=== PATIENT | male | born 1955 | race Caucasian/White ===

== ENCOUNTER 2019-04-02 07:22 | Day surgery (SDC) | payer OTHER ==
[~2019-04-02] VITALS: Ht 165.1 cm; Wt 90.7 kg
[2019-04-02] MEDS ORDERED: LISI20 (08:51)
[2019-04-02] MEDS ORDERED: METO25ER (08:52)
[2019-04-02] MEDS ORDERED: METF500C (08:53)
[2019-04-02] MEDS ORDERED: HYDPAM50 (08:53)
[2019-04-02] MEDS ORDERED: ATOR20 (08:54)
[2019-04-02] MEDS ORDERED: VENL25 (08:54)
[2019-04-02] MEDS ORDERED: MOME220I (08:55)
[2019-04-02] MEDS ORDERED: ALBU90OI6 (08:55)
--- NOTE | 2019-04-02 09:00 | NUR ---
04/02/19 0900 Sharri Mendez 1 IV MISS IN RH BY DIETER VEIN BLEW 1 GOOD IN RFA BY RN PT TOW
--- NOTE | 2019-04-02 10:28 | NUR ---
04/02/19 1028 Bela Camacho INJECTED 12ML NORMAL SALINE INTO TRANSVERSE COLON POLYP.
== END 2019-04-02 12:36 | disposition home or self-care (01) ==
LOC: ORSCSDS 07:22
PROVIDERS: Internal Medicine Gastroenterology
PROC: 0DB98ZX Excision of Duodenum, Via Natural or Artificial Opening Endoscopic, Diagnostic (ICD-10-PCS; principal; 2019-04-02 09:45)
PROC: 0DBL8ZX Excision of Transverse Colon, Via Natural or Artificial Opening Endoscopic, Diagnostic (ICD-10-PCS; principal; 2019-04-02 09:45)
PROC: 0DB58ZX Excision of Esophagus, Via Natural or Artificial Opening Endoscopic, Diagnostic (ICD-10-PCS; principal; 2019-04-02 09:45)
PROC: 0DBK8ZX Excision of Ascending Colon, Via Natural or Artificial Opening Endoscopic, Diagnostic (ICD-10-PCS; principal; 2019-04-02 09:45)
PROC: 0DB68ZX Excision of Stomach, Via Natural or Artificial Opening Endoscopic, Diagnostic (ICD-10-PCS; principal; 2019-04-02 09:45)
PROC: 0DBN8ZX Excision of Sigmoid Colon, Via Natural or Artificial Opening Endoscopic, Diagnostic (ICD-10-PCS; principal; 2019-04-02 09:45)
PROC: 0DBM8ZX Excision of Descending Colon, Via Natural or Artificial Opening Endoscopic, Diagnostic (ICD-10-PCS; principal; 2019-04-02 09:45)
DX: Z12.11 Encounter for screening for malignant neoplasm of colon (principal); Z86.010 Personal history of colon polyps; R11.0 Nausea; K31.7 Polyp of stomach and duodenum; D12.3 Benign neoplasm of transverse colon; D12.0 Benign neoplasm of cecum; D12.2 Benign neoplasm of ascending colon; D12.4 Benign neoplasm of descending colon; D12.5 Benign neoplasm of sigmoid colon; K57.30 Diverticulosis of large intestine without perforation or abscess without bleeding; K64.8 Other hemorrhoids; I10 Essential (primary) hypertension; E11.9 Type 2 diabetes mellitus without complications; E78.5 Hyperlipidemia, unspecified; G47.33 Obstructive sleep apnea (adult) (pediatric); J44.9 Chronic obstructive pulmonary disease, unspecified; F17.210 Nicotine dependence, cigarettes, uncomplicated; I25.10 Atherosclerotic heart disease of native coronary artery without angina pectoris; Z79.899 Other long term (current) drug therapy; Z79.82 Long term (current) use of aspirin
CPT/HCPCS: 82947; 88305; 88342; J2704; J7120

== ENCOUNTER 2019-09-21 22:41 | Emergency (ER) | payer OTHER ==
[~2019-09-21] VITALS: Ht 165.1 cm; Wt 90.7 kg
[~2019-09-21 22:41] MED LIST: ALBU90OI INH; ALBU90OI6; ASMANEX220 MC3 INH; ATOR20; BASAGLAR K100 UNIT/1 SC; DOXE10 PO; FISH OIL 1,0001 EAC1 PO; Glucophage1000 MG PO; HYDPAM25 PO; HYDPAM50; LISI20; LISI20 PO; Lipitor20 MG PO; METF500C; METO25ER; METO25ER PO; MOME220I; NICO21TP TOP; Novolog100 UNIT/1 SC; Retin-A15 GM TOP; STRIVERDI RESPIM4 GM INH; VENL25; VENL75ER PO
[2019-09-21] MEDS ORDERED: CEPH500 PO (23:11)
[2019-09-21] MEDS ORDERED: Bactrim Ds Tab1 EACH PO (23:11)
== END 2019-09-21 23:25 | disposition home or self-care (01) ==
LOC: ER 22:41
DX: L02.415 Cutaneous abscess of right lower limb (principal); L03.115 Cellulitis of right lower limb; F17.200 Nicotine dependence, unspecified, uncomplicated
CPT/HCPCS: 10061; 99283-25; A9270-GY

== ENCOUNTER 2021-05-16 08:00 | Inpatient (IN) | payer OTHER, MEDICARE ==
[~2021-05-16] VITALS: Ht 165.1 cm; Wt 76.1 kg
[~2021-05-16 08:00] MED LIST changes: +Bactrim Ds Tab1 EACH PO; +CEPH500 PO
[2021-05-16] MEDS ORDERED: INSULANI SC (08:17)
[2021-05-16] MEDS ORDERED: ALBU90OI INH (08:18)
[2021-05-16] MEDS ORDERED: METF500C PO (08:18)
[2021-05-16 08:28] LABS: BASOPHILS ABSOLUTE AUTO 0.05 K/mm3 (0.00-0.23); BASOPHILS PERCENT AUTO 0 % (0-2); EOSINOPHILS ABSOLUTE AUTO 0.05 K/mm3 (0.00-0.68); EOSINOPHILS PERCENT AUTO 0 % (0-6); Hematocrit 40.6 % (37.0-53.0); Hemoglobin 13.9 g/dL (13.5-17.5); IMMATURE GRAN ABSOLUTE AUTO 0.17 K/mm3 (0.00-0.10); IMMATURE GRAN PERCENT AUTO 1 % (0-1); LYMPHOCYTES ABSOLUTE AUTO 1.81 K/mm3 (0.84-5.20); LYMPHOCYTES PERCENT AUTO 10 % (21-46); MONOCYTES ABSOLUTE AUTO 1.76 K/mm3 (0.16-1.47); MONOCYTES PERCENT AUTO 9 % (4-13); Mean Corpuscular HGB 31.4 pg (26.0-34.0); Mean Corpuscular HGB Conc 34.2 g/dL (31.5-36.5); Mean Corpuscular Volume 92 fL (80-100); Mean Platelet Volume 12.5 fL (9.1-12.4); NEUTROPHILS ABSOLUTE AUTO 14.99 K/mm3 (1.96-9.15); NEUTROPHILS PERCENT AUTO 80 % (41-73); Platelet Count 202 K/mm3 (150-400); RDW Coefficient Variation 12.4 % (11.7-14.2); Red Blood Cell Count 4.43 M/mm3 (4.30-5.90); White Blood Cell Count 18.83 K/mm3 (4.00-11.30)
[2021-05-16] MEDS ORDERED: Hydroxyzine HCl50 MG (08:54)
[2021-05-16] MEDS ORDERED: LISI20 PO (08:56)
[2021-05-16] MEDS ORDERED: DULERA 100 MCG/13 GM INH (08:57)
[2021-05-16] MEDS ORDERED: STRIVERDI RESPIM4 G1 INH (08:58)
[2021-05-16] MEDS ORDERED: ATOR20 PO (09:00)
[2021-05-16 09:26] LABS: Alanine Aminotransfer (ALT/SGP 36 U/L (12-78); Albumin, Blood 2.7 g/dL (3.4-5.0); Albumin/Globulin Ratio 0.8 (0.8-1.8); Alk Phos 135 U/L (50-136); Anion Gap Unable to Calculate mmol/L (6-16); Aspartate Aminotrans (AST/SGOT 151 U/L (12-37); Bilirubin, Total 1.3 mg/dL (0.1-1.0); Blood Urea Nitrogen 13 mg/dL (8-24); Calcium, Blood 6.7 mg/dL (8.5-10.1); Chloride, Blood 75 mmol/L (98-108); Creatinine, Blood 1.63 mg/dL (0.60-1.20); Globulin, Blood 3.4 g/dL (2.2-4.0); Glomerular Filtration Rate 42 (60-); Glucose, Blood 43 mg/dL (70-99); Potassium, Blood 2.2 mmol/L (3.5-5.5); Sodium, Blood 133 mmol/L (136-145); Total Protein, Blood 6.1 g/dL (6.4-8.2)
[2021-05-16 09:27] LABS: CO2, Blood >45 mmol/L (21-32)
[2021-05-16 10:20] LABS: Beta-hydroxybutyrate 0.9 mg/dL (0.2-2.8); Ethanol (Alcohol), Blood, Med <3 mg/dL
[2021-05-16 10:24] LABS: Bicarbonate Venous 53.2 mmol/L (24.0-30.0); PCO2 Venous 75.9 mmHg (38-42); PO2 Venous 31.7 mmHg (38-42); pH Blood Venous 7.49 (7.34-7.37)
[2021-05-16 10:45] LABS: International Normalized Ratio 1.31; Prothrombin Time Results 13.9 Sec (9.7-11.5)
[2021-05-16 11:18] LABS: Source, Urine Clean Catch
[2021-05-16 11:25] LABS: Appearance, Urine Clear (Clear); Bilirubin, Urine Neg (Neg); Blood, Urine 4+ (Neg); Color, Urine Yellow (P-Yellow); Glucose Qualitative, Urine Neg (Neg); Ketones, Urine Neg (Neg); Leukocyte Esterase, Urine 1+ (Neg); Nitrite, Urine Neg (Neg); Protein, Urine 4+ (Neg); Urobilinogen, Urine NORM (Normal)
[2021-05-16 11:54] LABS: Bacteria Few /hpf; Red Blood Cells, Urine 0-2 /hpf (0-2); Squamous Epithelial Cells Few /hpf (Few)
[2021-05-16 15:38] LABS: U Amphetamine Screen Not Detected; U Barbituate Screen Not Detected; U Benzodiazapine Screen Not Detected; U Buprenorphine Screen Not Detected; U Cannabinoids Screen DETECTED; U Cocaine Screen Not Detected; U Methadone Screen Not Detected; U Methamphetamine Screen Not Detected; U Opiates Screen Not Detected; U Oxycodone Screen Not Detected; U Phencyclidine Screen Not Detected; U Propoxyphene Screen Not Detected
[2021-05-16 16:32] LABS: Free Thyroxine 0.88 ng/dL (0.70-1.60); Magnesium, Blood 1.6 mg/dL (1.6-2.4)
[2021-05-16 16:40] LABS: Thyroid Stimulating Hormone 0.678 uIU/mL (0.360-4.800); Triiodothyronine, Free 2.23 pg/mL (2.18-3.98)
[2021-05-16 17:18] LABS: Albumin, Blood 2.3 g/dL (3.4-5.0); Blood Urea Nitrogen 13 mg/dL (8-24); CPK Creatine Kinase 6919 U/L (39-308); Calcium, Blood 6.1 mg/dL (8.5-10.1); Chloride, Blood 82 mmol/L (98-108); Creatine Kinase MB Index 0.2 (0.0-4.0); Creatinine, Blood 1.44 mg/dL (0.60-1.20); Glomerular Filtration Rate 49 (60-); Glucose, Blood 293 mg/dL (70-99); Phosphorus, Blood 2.9 mg/dL (2.5-4.9); Sodium, Blood 134 mmol/L (136-145)
[2021-05-16 17:19] LABS: Anion Gap Unable to Calculate mmol/L (6-16)
[2021-05-16 17:20] LABS: CO2, Blood >45 mmol/L (21-32)
--- NOTE | 2021-05-16 19:31 | NUR ---
ADMISSION, SHIFT SUMMARY PT ARRIVED TO PCU THIS AFTERNOON, HIS CBG WAS 86, VS WERE TAKEN MANNUALLY THE MACHINE WAS NOT ACCURATELY READING. VS STABLE, PT ON 2L O2. PT WAS LETHARGIC UPON ARRIVAL BUT WAS ABLE TO BECOME MORE ALERT SEVERAL HOURS LATER. PT IS VERY DIAPHORETIC, HIS CBG DROPPED THIS EVENING, PT WAS GIVEN PEPSI AND A MEAL WAS ORDERED FOR HIM. PT'S POTASSIUM IS LOW AND WAS TRENDING DOWNWARD UPON ADMISSION, REPLACED PER EMAR. PT'S CIWA'S HAVE BEEN COMPLETED NEEDED. PT'S HR WAS SUSTAINING 90-100 IN AFIB UPON ARRIVAL TO PCU; THE CARDIZEM DRIP WAS PLACED ON STANDBY AT THAT TIME
--- NOTE | 2021-05-16 21:20 | NUR ---
CARE ASSUMPTION PT A&O X4. VSS. MONITOR SHOWING AFIB, HR 90's-110. SPO2 > 92% ON 2L NC. PT W/ DIAZ CATH DRAINING RED OUTPUT. PT W/ 4 SMALL, DARK BROWN, UNFORMED BM's SINCE CARE ASSUMPTION. STOOL SAMPLE SENT. RECTAL TUBE PLACED W/ PT CONSENT. PT EATING ONLY SMALL AMOUNT OF FOOD FROM MEAL TRAY. D5 1/2NS W/ KCL INFUSING PER ORDERS. Q1H CBG's STABLE. WILL CONTINUE TO MONITOR.
[2021-05-16 21:35] LABS: Adenovirus F 40/41 Not Detected (NOT DETECT); Astrovirus Not Detected (NOT DETECT); Campylobacter Sp Not Detected (NOT DETECT); Cryptosporidium Not Detected (NOT DETECT); Cyclospora Cayetanensis Not Detected (NOT DETECT); E. Coli O157 Not Detected (NOT DETECT); Entamoeba Histolytica Not Detected (NOT DETECT); Enteroaggregative E. coli-EAEC Not Detected (NOT DETECT); Enteropathogenic E. coli-EPEC Not Detected (NOT DETECT); Enterotoxigenic E. coli-ETEC Not Detected (NOT DETECT); Giardia Lamblia Not Detected (NOT DETECT); Norovirus GI/GII Not Detected (NOT DETECT); Plesiomonas Shigelloides Not Detected (NOT DETECT); Rotavirus A Not Detected (NOT DETECT); Salmonella Sp Not Detected (NOT DETECT); Sapovirus Not Detected (NOT DETECT); Shiga Toxin-prod E. coli-STEC Not Detected (NOT DETECT); Shigella/Enteroin E. coli-EIEC Not Detected (NOT DETECT); Vibrio Cholerae Not Detected (NOT DETECT); Vibrio Sp Not Detected (NOT DETECT); Yersinia Enterocolitica Not Detected (NOT DETECT)
--- NOTE | 2021-05-16 21:59 | NUR ---
CBGs IMPROVING / CALL TO PRODUCTION ROUSTABOUT CALL TO MARK FREY TO REPORT PT CBG's 140's-150's W/ LAST 2 CHECKS. PRODUCTION ROUSTABOUT W/ NEW ORDER TO CHANGE Q1H CBG MONITORING TO Q4H & MAINTAIN CURRENT IV FLUIDS.
[2021-05-17 00:38] LABS: Hemoglobin 12.7 g/dL (13.5-17.5); Mean Corpuscular HGB 31.4 pg (26.0-34.0); Mean Corpuscular HGB Conc 34.3 g/dL (31.5-36.5); Mean Corpuscular Volume 91 fL (80-100); Mean Platelet Volume 11.9 fL (9.1-12.4); Platelet Count 183 K/mm3 (150-400); RDW Coefficient Variation 12.4 % (11.7-14.2); RDW Standard Deviation 41.5 fL (35.1-46.3); Red Blood Cell Count 4.05 M/mm3 (4.30-5.90); White Blood Cell Count 23.62 K/mm3 (4.00-11.30)
[2021-05-17 00:56] LABS: Magnesium, Blood 1.4 mg/dL (1.6-2.4)
[2021-05-17 01:01] LABS: Alanine Aminotransfer (ALT/SGP 40 U/L (12-78); Albumin, Blood 2.6 g/dL (3.4-5.0); Albumin/Globulin Ratio 0.8 (0.8-1.8); Alk Phos 128 U/L (50-136); Anion Gap Unable to Calculate mmol/L (6-16); Aspartate Aminotrans (AST/SGOT 167 U/L (12-37); Bilirubin, Total 1.1 mg/dL (0.1-1.0); Blood Urea Nitrogen 11 mg/dL (8-24); Bun/Creatinine Ratio 7.6 (12.0-20.0); CO2, Blood >45 mmol/L (21-32); Calcium, Blood 6.2 mg/dL (8.5-10.1); Chloride, Blood 83 mmol/L (98-108); Creatinine, Blood 1.44 mg/dL (0.60-1.20); Globulin, Blood 3.2 g/dL (2.2-4.0); Glomerular Filtration Rate 49 (60-); Glucose, Blood 98 mg/dL (70-99); Phosphorus, Blood 3.1 mg/dL (2.5-4.9); Potassium, Blood 2.2 mmol/L (3.5-5.5); Sodium, Blood 133 mmol/L (136-145); Total Protein, Blood 5.8 g/dL (6.4-8.2)
[2021-05-17 01:22] LABS: Creatine Kinase MB 13.2 ng/mL (0.0-3.6)
[2021-05-17 01:30] LABS: Creatine Kinase MB Index 0.2 (0.0-4.0); Troponin I 0.801 ng/mL (0.000-0.040)
[2021-05-17 05:08] LABS: PCO2 Arterial 52.2 mmHg (35-45); PO2 Arterial 54.8 mmHg (80-100); pH Blood Arterial 7.57 (7.35-7.45)
--- NOTE | 2021-05-17 07:23 | NUR ---
SHIFT SUMMARY PT A&O X4 W/ GARBLED SPEECH UPON CARE ASSUMPTION. VSS. MONITOR SHOWING AFIB, HR 90's-110. SPO2 > 92% ON 2L NC. DIAZ CATH DRAINING RED OUTPUT. RECTAL TUBE DRAINING DARK BROWN LOOSE STOOL. PT CIWA 8-11 THIS SHIFT, MEDICATED W/ PRN IV ATIVAN X2 THIS SHIFT. PT W/ LABORED BREATHING NOTED UPON MIDNIGHT ASSESSMENT. RT PROVIDED BREATHING TX & PLACED PT ON CPAP. PT LUNG SOUNDS COARSE. PT DIFFICULT TO WAKEN. MD CORADO NOTIFED W/ NEW ORDERS TO DRAW ABG & BNP, STOP D5 1/2NS W/ KCL, & START PT ON IV LASIX BID ONCE BNP LEVEL WAS OBTAINED. IV CALCIUM GLUCONATE THEN ORDERED FOLLOWING ABG RESULTS. PT MORE ALERT THIS AM, SPONTANEOUSLY OPENING EYES DURING BEDSIDE REPORT AT CHANGE OF SHIFT & ABLE TO TALK TO STAFF IN . DAY SHIFT RN ASSUMING CARE.
--- NOTE | 2021-05-17 10:49 | NUR ---
PT AWAKES TO VOICE THIS AM. LETHARGIC UPON WAKING BUT ABLE TO SPEAK AND ANSWER CARE QUESTIONS. ORIENTED TO PLACE, SELF AND SITUATION. REQUESTING TO CALL FAMILY ON PERSONAL CELL PHONE. WEARING CPAP WHEN SLEEPING WITH 13L BLEED IN UPON SHIFT CHANGE. ABLE TO TRANSFER TO 3L NASAL CANNULA WHILE AWAKE. SATING ABOVE 94%. DENIES SOB. LUNGS SOUNDING CLEAR AND DIM IN BASES. TELE SHOWING AFIB WITH HR 110'S. DENIES CHEST PAIN/PRESSURE. BP ELEVATED. BOWEL TONES PRESENT, RECTAL TUBE IN PLACE. DIAZ CATH IN PLACE DRAINING CLEAR RED URINE, DR. NARVAEZ AWARE. SKIN TEARS BILATERAL ARMS. BRUISING THROUGHOUT. CIWA Q4. PATIENT HAS SLIGHT TREMORS. CIWA THIS AM 7. SPEECH THERAPY IN TO SEE PATIENT THIS AM AND NEW ORDERS. ORAL CARE Q4. PT HAS BROKEN TEETH. CALL LIGHT IN REACH. BED ALARM ON FOR SAFETY. WILL CONTINUE TO MONITOR.
[2021-05-17 12:52] LABS: Magnesium, Blood 1.3 mg/dL (1.6-2.4)
[2021-05-17 13:03] LABS: International Normalized Ratio 1.11; Prothrombin Time Results 11.9 Sec (9.7-11.5)
[2021-05-17 13:18] LABS: Bun/Creatinine Ratio 8.1 (12.0-20.0); Calcium, Blood 6.5 mg/dL (8.5-10.1); Creatinine, Blood 1.35 mg/dL (0.60-1.20); Potassium, Blood 2.3 mmol/L (3.5-5.5)
--- NOTE | 2021-05-17 17:53 | NUR ---
SHIFT SUMMARY: PT MENTATION IMPROVING. ON 2 L NASAL CANNULA AT THIS TIME. LUNGS SOUNDING CLEAR AND DIM IN BASES. PT PRODUCTIVE COUGH WITH MODERATE AMOUNT OF SPUTUM THAT IS MEJÍA IN COLOR. TELE REMAINS AFIB WITH HR 90-110'S. DENIES CHEST PAIN/PRESSURE. VITAL SIGNS REMAIN STABLE WITH ELEVATED BP, SCHEDULED METOPROLOL. RECTAL TUBE REMOVED PER DISCOMFORT. PT ABLE TO STAND AND TRANSFER WITH 1 PERSON ASSIST TO BEDSIDE COMMODE. MAG INFUSED, POTASSIUM INFUSING. PT SITTING ON EDGE OF BED AT THIS TIME USING PERSONAL CELLPHONE. SPEECH ORDERS IN PLACE. ACHS BLOOD SUGARS. WILL CONTINUE TO MONITOR AND REPORT OFF.
--- NOTE | 2021-05-17 18:17 | NUR ---
DIAZ CATH DRAINING RED URINE. DR. NARVAEZ AWARE. DIAZ PATENT AND DRAINING. WILL CONTINUE TO MONITOR AND REPORT OFF.
--- NOTE | 2021-05-17 20:14 | NUR ---
POTASSIUM ON STANDBY PT BECOMES AGITATED AND BELLIGERENT REGARDING IRRITATION AT IV SITE IN L HAND. FLUSHES WELL WITH NS, NO SIGNS OF INFILTRATION, REDNESS AT SITE. THIS RN PUTS POTASSIUM ON STANDBY AT THIS TIME UNTIL NEW IV CAN BE PLACED DUE TO DISCOMFORT AT HAND SITE.
--- NOTE | 2021-05-18 02:23 | NUR ---
CALL TO DR CORADO UPDATED ON POTASSIUM OF 2.5. ORDER TO RUN A MAG LEVEL STAT AND START POTASSIUM 40 MEQ TOTAL IV.
[2021-05-18 04:17] LABS: BASOPHILS ABSOLUTE AUTO 0.03 K/mm3 (0.00-0.23); BASOPHILS PERCENT AUTO 0 % (0-2); EOSINOPHILS ABSOLUTE AUTO 0.11 K/mm3 (0.00-0.68); EOSINOPHILS PERCENT AUTO 1 % (0-6); Hematocrit 30.5 % (37.0-53.0); Hemoglobin 10.6 g/dL (13.5-17.5); IMMATURE GRAN ABSOLUTE AUTO 0.06 K/mm3 (0.00-0.10); IMMATURE GRAN PERCENT AUTO 1 % (0-1); LYMPHOCYTES ABSOLUTE AUTO 1.75 K/mm3 (0.84-5.20); LYMPHOCYTES PERCENT AUTO 14 % (21-46); MONOCYTES ABSOLUTE AUTO 0.92 K/mm3 (0.16-1.47); MONOCYTES PERCENT AUTO 7 % (4-13); Mean Corpuscular HGB 31.2 pg (26.0-34.0); Mean Corpuscular HGB Conc 34.8 g/dL (31.5-36.5); Mean Corpuscular Volume 90 fL (80-100); Mean Platelet Volume 12.4 fL (9.1-12.4); NEUTROPHILS ABSOLUTE AUTO 9.62 K/mm3 (1.96-9.15); NEUTROPHILS PERCENT AUTO 77 % (41-73); Platelet Count 145 K/mm3 (150-400); RDW Coefficient Variation 12.6 % (11.7-14.2); RDW Standard Deviation 41.5 fL (35.1-46.3); White Blood Cell Count 12.49 K/mm3 (4.00-11.30)
[2021-05-18 04:19] LABS: PCO2 Arterial 49.5 mmHg (35-45); PO2 Arterial 65.8 mmHg (80-100); pH Blood Arterial 7.53 (7.35-7.45)
--- NOTE | 2021-05-18 07:35 | NUR ---
SHIFT SUMMARY PT AOX3, DYSPNEIC WITH EXERTION. SATS >90% ON RA AND NC 2 L O2 WHEN AWAKE. CPAP USED THROUGH MOST OF SHIFT WHILE PT ASLEEP. REQUESTED BREATHING TREATMENTS DURING SHIFT NEEDED. RED URINE OUTPUT CONTINUED THROUGH CATHETER. AFIB 90'S-100'S WITH PVCS. DENIES CP. NO COVERAGE FOR CIWA NEEDED ON SHIFT. PT DIAPHORETIC IN SLEEP, DENIES HEADAHCE OR NAUSEA. NO VISIBLE OR FELT TREMORS. DR CORADO CALLED REGARDING CONTINUED LOW POTASSIUM AND BORDERLINE MAG. REPLACEMENTS ADMINISTERED FOR BOTH. LOVENOX HELD DUE TO BLOOD IN DIAZ BAG PER DR CORADO ORDER.
[2021-05-18 07:47] LABS: Albumin, Blood 2.1 g/dL (3.4-5.0); Albumin/Globulin Ratio 0.7 (0.8-1.8); Bilirubin, Total 1.1 mg/dL (0.1-1.0); Bun/Creatinine Ratio 6.1 (12.0-20.0); Calcium, Blood 6.5 mg/dL (8.5-10.1); Creatinine, Blood 1.32 mg/dL (0.60-1.20); Globulin, Blood 3.1 g/dL (2.2-4.0); Potassium, Blood 2.4 mmol/L (3.5-5.5); Total Protein, Blood 5.2 g/dL (6.4-8.2)
[2021-05-18 09:16] LABS: Magnesium, Blood 1.7 mg/dL (1.6-2.4); Potassium, Blood 2.8 mmol/L (3.5-5.5)
--- NOTE | 2021-05-18 17:00 | NUR ---
SHIFT SUMMARY PT ALERT AND ORIENTED. ANXIOUS AT TIMES. VS STABLE. O2 SATS HAVE REMAINED ABOVE 90% ON 2L NC. HR HAS BEEN AFIB IN THE 90'S. BP STABLE. PT DENIES ANY PAIN. DIAZ PATENT AND DRAINING RED URINE. CATHETER IRRIGATED 3 TIMES THIS SHIFT REQUESTED BY DR. NARVAEZ. PT HAD LOOSE STOOL THIS SHIFT X1. PT ABLE TO AMBULATE TO BATHROOM WITH SBA. WILL CONTINUE TO MONITOR CLOSELY AND REPORT TO ONCOMING RN.
[2021-05-18 17:16] LABS: Bun/Creatinine Ratio 8.1 (12.0-20.0); Calcium, Blood 7.1 mg/dL (8.5-10.1); Creatinine, Blood 1.23 mg/dL (0.60-1.20); Magnesium, Blood 2.1 mg/dL (1.6-2.4)
[2021-05-19 03:58] LABS: BASOPHILS ABSOLUTE AUTO 0.02 K/mm3 (0.00-0.23); BASOPHILS PERCENT AUTO 0 % (0-2); EOSINOPHILS ABSOLUTE AUTO 0.12 K/mm3 (0.00-0.68); EOSINOPHILS PERCENT AUTO 1 % (0-6); Hematocrit 28.4 % (37.0-53.0); Hemoglobin 9.9 g/dL (13.5-17.5); IMMATURE GRAN ABSOLUTE AUTO 0.05 K/mm3 (0.00-0.10); IMMATURE GRAN PERCENT AUTO 0 % (0-1); LYMPHOCYTES ABSOLUTE AUTO 1.27 K/mm3 (0.84-5.20); LYMPHOCYTES PERCENT AUTO 11 % (21-46); MONOCYTES PERCENT AUTO 9 % (4-13); Mean Corpuscular HGB 31.5 pg (26.0-34.0); Mean Corpuscular HGB Conc 34.9 g/dL (31.5-36.5); Mean Corpuscular Volume 90 fL (80-100); Mean Platelet Volume 12.4 fL (9.1-12.4); NEUTROPHILS ABSOLUTE AUTO 8.86 K/mm3 (1.96-9.15); NEUTROPHILS PERCENT AUTO 78 % (41-73); Platelet Count 145 K/mm3 (150-400); RDW Coefficient Variation 12.3 % (11.7-14.2); RDW Standard Deviation 40.5 fL (35.1-46.3); Red Blood Cell Count 3.14 M/mm3 (4.30-5.90); White Blood Cell Count 11.32 K/mm3 (4.00-11.30)
--- NOTE | 2021-05-19 04:23 | NUR ---
PT UPDATE [id number] PT HAS EPISODE OF SEVERE DYSPNEA W/AGITATION AFTER AWAKENING AND OFF CPAP W/REPOSITIONING TO SIT UP AND HAVE A DRINK AND FOR ORAL CARE. PT ATTEMPTS TO PULL OFF TELE, SAT PROVE, REFUSES TO GO BACK ON CPAP DURING EPISODE OF WHAT APPEARED TO BE PANIC DUE TO AIR HUNGER. PT PULLED OFF NC, THIS RN ATTEMPTED TO REPLACE CANNULA. BRANDEE FISHER CALLED TO BEDSIDE FOR BREATHING TX D/T SOME AUDIBLE EXPIRATORY WHEEZING. ONSET OF SOB AND AGITATION WAS SUDDEN WITHIN MINUTES OF SITTING UP IN BED FROM SLEEPING ON CPAP. SATS APPEARED 95-96% ON 2 L VIA NC PRIOR TO PT PULLING OFF SAT PROBE IN PANIC. PT CALMS DURING BREATHING TX, BREATHING APPEARS TO SLOW. PT REPOSITIONED BACK INTO BED FOLLOWING BREATHING TX BY BRANDEE FISHER AND THIS RN WITH ASSIST FROM BRANDON BLACKBURN. PT DENIES ANY PAIN. PER TELE HR HAD RAPIDLY INCREASED TO 130'S AFIB DURING EPISODE. BACK DOWN TO AFIB 90'S. PT IS CALM ON CPAP AT THIS TIME ON 10 L. SATS 96% AT THIS TIME. THIS RN TO DISCUSS W/STATION OPERATOR PROVIDER FOLLOWING RESULT OF LABS TO REPORT.
[2021-05-19 04:25] LABS: Bun/Creatinine Ratio 6.5 (12.0-20.0); Calcium, Blood 7.3 mg/dL (8.5-10.1); Creatinine, Blood 1.24 mg/dL (0.60-1.20); Potassium, Blood 3.6 mmol/L (3.5-5.5)
--- NOTE | 2021-05-19 04:42 | NUR ---
CALL TO DR CORADO [id number] CORADO TO DISCUSS PRIOR NOTIFY OF RENAL US RESULTS AND CURRENT LABS. DR CORADO DISCUSSES THIS RN'S CONCERNS OF RENAL US RESULTS AND PT'S SUDDEN ONSET OF SOB THIS SHIFT W/AWAKENING. DOES NOT THINK A REPEAT BNP IS NEEDED AT THIS TIME. DEFERS PLAN FOR RESULTS OF RENAL US TO ONCOMING PROVIDER THIS AM. NO FURTHER ORDERS FOR CONTINUED REPLACEMENTS OF LOW-END OF WNL HGB, MAG, OR K AT THIS TIME. PT IS RESTING PEACEFULLY ON CPAP SATS MAINTAIN 90-96%.
--- NOTE | 2021-05-19 06:18 | NUR ---
SHIFT SUMMARY PT AOX4 W/PERIODS OF DISORIENTATION DURING NIGHT AND EARLY AM ON SHIFT. PT EASILY AGITATED, LABILE BEHAVIOR. CALM WHILE ASLEEP AND COMFORTABLE ON CPAP. AFIB 80'S-90'S W/PVC'S. PT DENIES ANY PAIN. DIAZ PATENT AND DRAINING. URINE COLOR LIGHTENED TO PINKISH-RED THROUGH SHIFT. PT HAD EPISODE OF SEVERE DYSPNEA WITH WHEEZING SUDDENLY FOLLOWING CPAP REMOVAL FOR ORAL CARE/PO FLUIDS AND REPOSITIONING. PT BECAME AGITATED SUDDENLY AND NON-COMPLIANT W/DIRECTION FROM STAFF. RESOLVED W/NEB AND CPAP BACK ON. PT IRRITABLE THIS AM WHEN THIS RN ADMIN ORDERED PO MED AND PT WANTED TO DRINK PEPSI LAYING DOWN, PT ARGUED WITH THIS RN AND BECAME BELLIGERENT, NON-COMPLIANT WITH WARNINGS TO SIT UPRIGHT WHEN DRINKING (DIET) PEPSI. NO ISSUE DRINKING SODA WHILE LAYING ON SIDE OFF CPAP. BACK ON CPAP, PT CALMED. SATS MAINTAIN 90-95% ON CPAP W/10 L 02. IMPROVEMENTS IN ELECTROLYTES THIS SHIFT BUT CONCERN FOR RENAL US RESULTS AND H&H CONTINUING TO DROP W/PRESENCE OF BLOOD IN URINE. IV SALINE LOCKED.
--- NOTE | 2021-05-19 11:03 | NUR ---
PHYSICIAN AT BEDSIDE PHYSICIAN ORDERS TO HAVE TELE REMOVED AND TO BEGIN BLADDER TRAINING TO REMOVE DIAZ TOMORROW AM 05/20.
--- NOTE | 2021-05-19 13:20 | NUR ---
UPDATE NOTIFIED PHYSICIAN PT HAD NO FURTHER TROPONINS ORDERED. NO NEW ORDERS AT THIS TIME, PHYSICIAN BELIEVES TROPONIN BUMPED D/T A-FIB. PT REPORTS NO CP OR PRESSURE.
--- NOTE | 2021-05-19 14:02 | NUR ---
REPORT GIVEN REPORT GIVEN TO ROOM 311 RN. PT TO BE TAKEN TO ROOM 311 BY BED WITH ALL BELONGINGS.
--- NOTE | 2021-05-19 18:16 | NUR ---
PT TRANSFERRED FROM PCU 9 TO ROOM 311 AT 1423- W/C TO BED, PT AMBULATES STEADY ON FEET SBA. ORIENTED TO ROOM CALL LIGHT AND SAFETY- PT MODERATELY ANXIOUS. BLOOD PRESURE ELEVATED. CALL TO DR NARVAEZ, ORDER FOR AMLODAPINE AND HYDRALAZINE.
--- NOTE | 2021-05-19 18:17 | NUR ---
SUMM- PT A/O X3, LABILE MOOD WITH OCCASIONAL OUTBURSTS AND INABILITY TO COPE. MEDICATED WITH ATIVAN AND ATARAX BEFORE DINNER WITH MOD TO SEVERE ANXIETY ESCELATING. PT HAS DIAZ WITH BLOOD TINGED URINE AND WANTS IT OUT. WILL DO BLADDER TRAINING AND ATTEMPT TO DC IN THE AM. HYPERTENSIVE AND RECEIVED PRN MEDS, CONTINUING TO ELSI PROGRESS. PT TOLERATED DINNER AND FLUIDS. HAD BM. CONSTANTLY FEELS LIKE HE HAS TO VOID WITH THE DIAZ IN PLACE. WILL REPORT ALL TO NOC RN.
[2021-05-20] MEDS ORDERED: ASCO500 PO (04:13)
[2021-05-20] MEDS ORDERED: VITAMIN D31000 UNI1 PO (04:14)
[2021-05-20] MEDS ORDERED: FISH OIL 1,2001 EAC7 PO (04:15)
[2021-05-20] MEDS ORDERED: TADALAFIL20 M1 PO (04:21)
[2021-05-20] MEDS ORDERED: VENL75ER PO (04:22)
--- NOTE | 2021-05-20 04:58 | NUR ---
SHIFT SUMMARY A/O, ABLE TO MAKE NEEDS KNOWN. COOPERATIVE WITH CARE. APPEARS TO GET VERY ANXIOUS AND IRRITABLE AT TIMES. NO C/O PAIN/DISCOMFORT. SHOWER RECIEVED. CPAP @ HS /c CONT. BIOX. APPEARED TO REST MUCH OF THE NIGHT. 1P ASSIST TO BATHROOM. DIAZ SECURED AND DRAINING TO GRAVITY. ATTEMPTED TO BLADDER TRAIN; NOTABLY LEAKING AROUND CATHETER WITHIN 40 MINS. NO OTHER ACUTE CHANGES NOTED. BED REMAINED IN LOWEST POSITION. CALL LIGHT AND BELONGINGS WITHIN REACH. CONTINUE WITH CURRENT PLAN OF CARE. REPORT TO ONCOMING RN.
[2021-05-20 08:04] LABS: BASOPHILS ABSOLUTE AUTO 0.02 K/mm3 (0.00-0.23); BASOPHILS PERCENT AUTO 0 % (0-2); EOSINOPHILS ABSOLUTE AUTO 0.09 K/mm3 (0.00-0.68); EOSINOPHILS PERCENT AUTO 1 % (0-6); Hemoglobin 10.7 g/dL (13.5-17.5); IMMATURE GRAN ABSOLUTE AUTO 0.07 K/mm3 (0.00-0.10); IMMATURE GRAN PERCENT AUTO 1 % (0-1); LYMPHOCYTES ABSOLUTE AUTO 0.87 K/mm3 (0.84-5.20); LYMPHOCYTES PERCENT AUTO 9 % (21-46); MONOCYTES ABSOLUTE AUTO 1.19 K/mm3 (0.16-1.47); MONOCYTES PERCENT AUTO 12 % (4-13); Mean Corpuscular HGB 31.3 pg (26.0-34.0); Mean Corpuscular HGB Conc 34.5 g/dL (31.5-36.5); Mean Corpuscular Volume 91 fL (80-100); Mean Platelet Volume 12.9 fL (9.1-12.4); NEUTROPHILS ABSOLUTE AUTO 7.99 K/mm3 (1.96-9.15); NEUTROPHILS PERCENT AUTO 78 % (41-73); Platelet Count 186 K/mm3 (150-400); RDW Coefficient Variation 12.3 % (11.7-14.2); RDW Standard Deviation 40.3 fL (35.1-46.3); Red Blood Cell Count 3.42 M/mm3 (4.30-5.90); White Blood Cell Count 10.23 K/mm3 (4.00-11.30)
[2021-05-20 08:16] LABS: Anion Gap 4 mmol/L (6-16); Blood Urea Nitrogen 9 mg/dL (8-24); Bun/Creatinine Ratio 7.5 (12.0-20.0); CO2, Blood 31 mmol/L (21-32); Calcium, Blood 8.2 mg/dL (8.5-10.1); Chloride, Blood 101 mmol/L (98-108); Glomerular Filtration Rate >60 (60-); Glucose, Blood 178 mg/dL (70-99); Potassium, Blood 3.6 mmol/L (3.5-5.5); Sodium, Blood 136 mmol/L (136-145)
[2021-05-20] MEDS ORDERED: AMLO10 PO (09:14)
[2021-05-20] MEDS ORDERED: MELATONIN5 M1 PO (09:14)
[2021-05-20] MEDS ORDERED: METO50ER PO (09:15)
[2021-05-20] MEDS ORDERED: Aspir 8181 MG PO (09:15)
--- NOTE | 2021-05-20 09:52 | NUR ---
[facility] [employer]'Ignacio FOR A [employer] TAXI TRANSPORT TO PT'S V[facility]. [place] TAXI REPORTS PICKUP AT 1030. [facility] AND [facility] THEY WILL CALL PT WITH A FOLLOW UP APPT.
--- NOTE | 2021-05-20 10:30 | NUR ---
DISCHARGE DISCHARGE INSTRUCTIONS, MEDICATION LIST AND FOLLOW UP APPOINTMENT REVIEWED WITH PT. [facility] INDICATED THAT THEY WOULD BE IN TOUCH WITH PT TO ARRANGE FOLLOW UP APPOINTMENT. PT VERBALLY INDICATED UNDERSTANDING OF ALL INSTRUCTIONS RECEIVED. ESCORTED OUT TO WAITING TAXI BY METAL MOULDER VIA W/C
== END 2021-05-20 10:26 | disposition home or self-care (01) | DRG 308 ==
LOC: ER 08:00 → ERHOLD 11:49 → PCU 11:49 → MEDS 05-19 14:23
PROVIDERS: Family Medicine; Internal Medicine; ADMIT Internal Medicine
DX: I48.91 Unspecified atrial fibrillation (principal); G92 Toxic encephalopathy; N17.9 Acute kidney failure, unspecified; E87.1 Hypo-osmolality and hyponatremia; E87.3 Alkalosis; E87.6 Hypokalemia; G47.33 Obstructive sleep apnea (adult) (pediatric); E83.42 Hypomagnesemia; J44.9 Chronic obstructive pulmonary disease, unspecified; I10 Essential (primary) hypertension; I25.10 Atherosclerotic heart disease of native coronary artery without angina pectoris; Z91.14 Patient's other noncompliance with medication regimen; Z59.0 Homelessness; Z95.5 Presence of coronary angioplasty implant and graft; F32.9 Major depressive disorder, single episode, unspecified; Z08 Encounter for follow-up examination after completed treatment for malignant neoplasm; Z85.828 Personal history of other malignant neoplasm of skin; Z79.899 Other long term (current) drug therapy; Z79.4 Long term (current) use of insulin; F17.210 Nicotine dependence, cigarettes, uncomplicated; I49.3 Ventricular premature depolarization; I47.2 Ventricular tachycardia; R31.9 Hematuria, unspecified; E11.649 Type 2 diabetes mellitus with hypoglycemia without coma
CPT/HCPCS: 0097U; 36415; 36600; 51702; 70450; 71046; 76770; 80048; 80053; 80069; 81001; 82010; 82140; 82330; 82550; 82553; 82803; 82947; 83690; 83735; 83880; 84100; 84132; 84439; 84443; 84481; 84484; 85025; 85027; 85610; 87086; 92610; 93005; 93010; 93306; 94640; 94660; 94664; 94762; 96365-59; 96366-59; 96368; 96375-59; 96376-59; 99285-25; A9270; C9113; G0480; J0360; J0610; J1650; J1940; J2060; J3411; J3475; J3480; J7030; J7042; J7050

== ENCOUNTER → 2021-06-09 | Outpatient (CLI) | payer OTHER ==
[~2021-06-09] MED LIST changes: +AMLO10 PO; +ASCO500 PO; +ATOR20 PO; +Aspir 8181 MG PO; +DULERA 100 MCG/13 GM INH; +FISH OIL 1,2001 EAC7 PO; +Hydroxyzine HCl50 MG; +INSULANI SC; +MELATONIN5 M1 PO; +METF500C PO; +METO50ER PO; +STRIVERDI RESPIM4 G1 INH; +TADALAFIL20 M1 PO; +VITAMIN D31000 UNI1 PO
[2021-06-09 17:43] LABS: Source, Urine Voided
[2021-06-09 17:49] LABS: Appearance, Urine Clear (Clear); Bilirubin, Urine Neg (Neg); Blood, Urine Neg (Neg); Color, Urine Yellow (P-Yellow); Glucose Qualitative, Urine Neg (Neg); Ketones, Urine Neg (Neg); Leukocyte Esterase, Urine Neg (Neg); Nitrite, Urine Neg (Neg); Protein, Urine 3+ (Neg); Urobilinogen, Urine NORM (Normal)
[2021-06-09 18:34] LABS: Bacteria Not Seen /hpf; Red Blood Cells, Urine Rare /hpf (0-2); Squamous Epithelial Cells Few /hpf (Few); White Blood Cells, Urine Rare /hpf (0-5)
== END | disposition home or self-care (01) ==
PROVIDERS: Emergency Medicine
DX: N39.0 Urinary tract infection, site not specified (principal)
CPT/HCPCS: 81001

== ENCOUNTER 2023-07-20 16:05 | Inpatient (IN) | payer OTHER ==
[~2023-07-20] VITALS: Ht 167.6 cm; Wt 58.5 kg
[2023-07-20 16:54] LABS: BASOPHILS ABSOLUTE AUTO 0.02 K/mm3 (0.00-0.23); BASOPHILS PERCENT AUTO 0 % (0-2); EOSINOPHILS ABSOLUTE AUTO 0.06 K/mm3 (0.00-0.68); EOSINOPHILS PERCENT AUTO 1 % (0-6); IMMATURE GRAN ABSOLUTE AUTO 0.03 K/mm3 (0.00-0.10); IMMATURE GRAN PERCENT AUTO 1 % (0-1); LYMPHOCYTES ABSOLUTE AUTO 0.74 K/mm3 (0.84-5.20); LYMPHOCYTES PERCENT AUTO 12 % (21-46); MONOCYTES ABSOLUTE AUTO 0.55 K/mm3 (0.16-1.47); MONOCYTES PERCENT AUTO 9 % (4-13); Mean Corpuscular HGB 28.9 pg (26.0-34.0); Mean Corpuscular HGB Conc 35.7 g/dL (31.5-36.5); Mean Corpuscular Volume 81 fL (80-100); Mean Platelet Volume 10.9 fL (9.1-12.4); NEUTROPHILS ABSOLUTE AUTO 4.88 K/mm3 (1.96-9.15); NEUTROPHILS PERCENT AUTO 78 % (41-73); Platelet Count 177 K/mm3 (150-400); RDW Coefficient Variation 14.6 % (11.7-14.2); Red Blood Cell Count 3.46 M/mm3 (4.30-5.90); White Blood Cell Count 6.28 K/mm3 (4.00-11.30)
[2023-07-20 17:10] LABS: Albumin, Blood 3.4 g/dL (3.4-5.0); Albumin/Globulin Ratio 1.1 (0.8-1.8); Bun/Creatinine Ratio 13.2 (12.0-20.0); Creatinine, Blood 6.29 mg/dL (0.60-1.20); Globulin, Blood 3.2 g/dL (2.2-4.0); Potassium, Blood 3.5 mmol/L (3.5-5.5); Total Protein, Blood 6.6 g/dL (6.4-8.2)
[2023-07-20 21:27] LABS: Base Excess Venous -7.5 mmol/L; Bicarbonate Venous 18.9 mmol/L (24.0-30.0); PCO2 Venous 31.4 mmHg (38-42); pH Blood Venous 7.36 (7.34-7.37)
[2023-07-20 22:33] VITALS: BP 158/98
[2023-07-20 23:15] LABS: Source, Urine Clean Catch
[2023-07-20 23:24] LABS: Bilirubin, Urine Neg (Neg); Blood, Urine 3+ (Neg); Glucose Qualitative, Urine Neg (Neg); Ketones, Urine Neg (Neg); Leukocyte Esterase, Urine Neg (Neg); Nitrite, Urine Neg (Neg); Protein, Urine 2+ (Neg); Urobilinogen, Urine NORM (Normal)
[2023-07-20 23:33] LABS: Appearance, Urine Clear (Clear); Color, Urine Yellow (P-Yellow)
[2023-07-20 23:34] LABS: Bacteria Few /hpf; Red Blood Cells, Urine 0-2 /hpf (0-2); Squamous Epithelial Cells Few /hpf (Few); White Blood Cells, Urine 0-2 /hpf (0-5)
[2023-07-21 04:46] VITALS: BP 123/61
[2023-07-21 05:34] LABS: Albumin, Blood 2.8 g/dL (3.4-5.0); Bilirubin, Total 0.8 mg/dL (0.1-1.0); Bun/Creatinine Ratio 14.4 (12.0-20.0); Calcium, Blood 8.2 mg/dL (8.5-10.1); Creatinine, Blood 5.15 mg/dL (0.60-1.20); Globulin, Blood 2.9 g/dL (2.2-4.0); Magnesium, Blood 1.9 mg/dL (1.6-2.4); Potassium, Blood 3.1 mmol/L (3.5-5.5); Total Protein, Blood 5.7 g/dL (6.4-8.2)
--- NOTE | 2023-07-21 06:29 | NUR ---
SHIFT SUMMARY NOC ADMIT FROM ED WITH NICK/HYPONATREMIA. PT HAS RECEIVED 2L NS SO FAR WITH 3L CURRENTLY INFUSING. MIDNIGHT SODIUM UP FROM 124 TO 128, AWAITING AM LABS FOR IMPROVEMENT. PT IS A/O X 4. 1PA TO BEDSIDE URINAL. PT REPORTS BEING LIVING IN [place] [facility] OF YESTERDAY, BUT NO LONGER HAS A TENABLE LIVING SITUATION. PT HAS CPAP SET UP IN ROOM FOR SLEEPING. PT HAS UA PENDING. CARE MANAGEMENT CONSULT ORDERED. PT IS [facility], STILL WAITING ON RX LIST. PT REPORTS TAKING ONLY SOME DIABETES PO RX, BUT HAS NOT TAKEN ANY OTHER OF PRESCRIBED RX FOR SOME TIME, THE REASON FOR DOING SO IS STILL VAGUE. PT IS CURRENTLY RESTING WITH BED IN LOWEST POSITION, AND CALL LIGHT WITHIN REACH.
[2023-07-21 08:47] VITALS: BP 118/100
[2023-07-21 13:41] LABS: Bun/Creatinine Ratio 15.8 (12.0-20.0); Calcium, Blood 8.2 mg/dL (8.5-10.1); Creatinine, Blood 4.19 mg/dL (0.60-1.20); Potassium, Blood 3.4 mmol/L (3.5-5.5)
[2023-07-21 16:15] VITALS: BP 139/86
--- NOTE | 2023-07-21 16:57 | NUR ---
SHIFT SUMMARY PT IS ALERT AND ORIENTED X2-3. DOESNT REMEMBER HOW OR WHY HE IS IN THE HOSPITAL. POOR INTAKE. HAS SIPPED ON DRINKS BUT DECLINED ALL OFFERS OF FOOD. FLUID BOLUS GIVEN EARLIER THIS SHIFT. CONTINUOUS IV FLUIDS. SBA TO BEDSIDE WITH URINAL. CPAP AT NIGHT. ONE PRN BREATHING REQUIRED TODAY. WHEEZING NOTED IN THE LOWER LOBES. BED IS IN THE LOWEST POSITION WITH CALL LIGHT IN REACH. BED ALARM ON. PT IS IMPULSIVE WITH URGENCY.
[2023-07-21 19:37] VITALS: BP 150/81
--- NOTE | 2023-07-22 04:09 | NUR ---
SHIFT SUMMARY PATIENT HAD NO ACUTE CHANGES. AXOX 3 AND SBA TO BSC. USING URINAL STANDING WITH SBA. VOIDING T/O SHIFT. PIV REMAINS INTACT. NS INFUSING AT 125 mL/HR. VSS/AFEBRILE. DENIES CHEST PAIN, SOB, AND N/V. CPAP SETUP IN ROOM AND DECLINING AT THIS TIME. STATING 98% ON CONTINUOUS PULSE, ON ROOM AIR. CALL LIGHT IN REACH. BED IN LOWEST POSITION. WILL CONTINUE TO MONITOR UNTIL DAY SHIFT NURSE ASSUMES CARE.
[2023-07-22 04:35] LABS: BASOPHILS ABSOLUTE AUTO 0.02 K/mm3 (0.00-0.23); BASOPHILS PERCENT AUTO 0 % (0-2); EOSINOPHILS ABSOLUTE AUTO 0.04 K/mm3 (0.00-0.68); EOSINOPHILS PERCENT AUTO 1 % (0-6); Hematocrit 28.4 % (37.0-53.0); IMMATURE GRAN ABSOLUTE AUTO 0.02 K/mm3 (0.00-0.10); IMMATURE GRAN PERCENT AUTO 0 % (0-1); LYMPHOCYTES ABSOLUTE AUTO 0.62 K/mm3 (0.84-5.20); LYMPHOCYTES PERCENT AUTO 10 % (21-46); MONOCYTES ABSOLUTE AUTO 0.48 K/mm3 (0.16-1.47); MONOCYTES PERCENT AUTO 8 % (4-13); Mean Corpuscular HGB Conc 35.2 g/dL (31.5-36.5); Mean Corpuscular Volume 82 fL (80-100); Mean Platelet Volume 10.4 fL (9.1-12.4); NEUTROPHILS ABSOLUTE AUTO 5.12 K/mm3 (1.96-9.15); NEUTROPHILS PERCENT AUTO 81 % (41-73); Platelet Count 164 K/mm3 (150-400); RDW Coefficient Variation 14.6 % (11.7-14.2); Red Blood Cell Count 3.45 M/mm3 (4.30-5.90)
[2023-07-22 04:57] LABS: Bun/Creatinine Ratio 18.9 (12.0-20.0); Calcium, Blood 8.1 mg/dL (8.5-10.1); Creatinine, Blood 2.96 mg/dL (0.60-1.20); Potassium, Blood 2.9 mmol/L (3.5-5.5)
[2023-07-22 08:35] VITALS: BP 132/78
--- NOTE | 2023-07-22 15:56 | NUR ---
SHIFT SUMMARY PATIENT RECEIVING FLUIDS THIS SHIFT. NOT EATING WELL, DIET DOWNGRADED DUE TO COMLAINTS OF NOT BEING ABLE TO CHEW WITHOUT TOP TEETH PRESENT. HAD EPISODE OF HYPOGLYCEMIA, WAS GIVEN SODA AND SNACKS HE WOULD ACCEPT. APPEARS VERY IRRITABLE AT TIMES AND YELLS OUT, BUT THEN PROMPTLY APOLOGIZES AND THANKS STAFF FOR BEING PRESENT AND GIVING CARE. HAVING SEVERAL BOWEL MOVEMENTS THIS SHIFT AND URINATING GOOD AMOUNTS. WILL CONTINUE TO MONITOR
[2023-07-22 16:10] VITALS: BP 118/68
[2023-07-22 19:46] VITALS: BP 123/76
--- NOTE | 2023-07-23 04:36 | NUR ---
SHIFT SUMMARY PATIENT IS ALERT AND ORIENTED. PATIENT HAS HAD NO ACUTE EVENTS THIS SHIFT. PATIENT HAD LOW CBG DURING DAY SHIFT, SO SPOT CHECKED DURING THE NIGHT AND DID NOT GO LOW ON CBG. PATIENT EATING AND DRINKING WELL FOR NOC SHIFT. PATIENT REQUESTED TO GET EVERYTHING DONE EARLY SO HE COULD GO TO SLEEP. PATIENT HAS BEEN SLEEPING COMFORTABLY MOST OF SHIFT. PATIENT HAS NOT COMPLAINED OF PAIN, NAUSEA, SOB OR VOMITTING THIS SHIFT. VITAL SIGNS REVIEWED. BED IN LOWEST POSITION. CALL LIGHT IN PLACE. WILL MONITOR UNTIL SHIFT CHANGE.
[2023-07-23 04:58] VITALS: BP 115/71
[2023-07-23 05:36] LABS: BASOPHILS ABSOLUTE AUTO 0.02 K/mm3 (0.00-0.23); BASOPHILS PERCENT AUTO 0 % (0-2); EOSINOPHILS ABSOLUTE AUTO 0.09 K/mm3 (0.00-0.68); EOSINOPHILS PERCENT AUTO 1 % (0-6); IMMATURE GRAN ABSOLUTE AUTO 0.03 K/mm3 (0.00-0.10); IMMATURE GRAN PERCENT AUTO 1 % (0-1); LYMPHOCYTES ABSOLUTE AUTO 0.96 K/mm3 (0.84-5.20); LYMPHOCYTES PERCENT AUTO 14 % (21-46); MONOCYTES ABSOLUTE AUTO 0.57 K/mm3 (0.16-1.47); MONOCYTES PERCENT AUTO 9 % (4-13); Mean Corpuscular HGB 28.8 pg (26.0-34.0); Mean Corpuscular HGB Conc 34.6 g/dL (31.5-36.5); Mean Corpuscular Volume 83 fL (80-100); Mean Platelet Volume 10.6 fL (9.1-12.4); NEUTROPHILS ABSOLUTE AUTO 4.98 K/mm3 (1.96-9.15); NEUTROPHILS PERCENT AUTO 75 % (41-73); Platelet Count 152 K/mm3 (150-400); RDW Coefficient Variation 14.6 % (11.7-14.2); RDW Standard Deviation 43.8 fL (35.1-46.3); Red Blood Cell Count 3.12 M/mm3 (4.30-5.90); White Blood Cell Count 6.65 K/mm3 (4.00-11.30)
[2023-07-23 06:05] LABS: Albumin, Blood 2.8 g/dL (3.4-5.0); Albumin/Globulin Ratio 1.1 (0.8-1.8); Bilirubin, Total 0.8 mg/dL (0.1-1.0); Bun/Creatinine Ratio 16.4 (12.0-20.0); Calcium, Blood 7.9 mg/dL (8.5-10.1); Creatinine, Blood 2.99 mg/dL (0.60-1.20); Globulin, Blood 2.5 g/dL (2.2-4.0); Potassium, Blood 3.9 mmol/L (3.5-5.5); Total Protein, Blood 5.3 g/dL (6.4-8.2)
[2023-07-23 07:47] VITALS: BP 110/71
[2023-07-23 17:04] VITALS: BP 111/80
--- NOTE | 2023-07-23 17:27 | NUR ---
SHIFT SUMMARY PT AxOx4. PLEASANT AND COOPERATIVE WITH CARE. PT GETTING IV INFUSIONS AND FLUIDS TODAY. WORKED WITH PHYSICAL THERAPY. PT STARTED HAVING DIARRHEA THIS AM. MULTIPLE STOOLS BY THE AFTERNOON. C-DIFF/GI PANEL ORDERED AND SAMPLE SENT. GI PANEL PENDING. PT HAD BED BATH THIS SHIFT. PT REPORTS HAVING LOW APPETITE AND NOT BEING ABLE TO CHEW VERY WELL. DRINKING SUPPLEMENTAL SHAKES FOR MOST MEALS. PT IS CURRENTLY RESTING IN BED WITH CALL LIGHT IN REACH. DENIES ANY NEEDS AT THIS TIME.
[2023-07-23 18:16] LABS: Adenovirus F 40/41 Not Detected (NOT DETECT); Astrovirus Not Detected (NOT DETECT); Campylobacter Sp Not Detected (NOT DETECT); Cryptosporidium Not Detected (NOT DETECT); Cyclospora Cayetanensis Not Detected (NOT DETECT); E. Coli O157 Not Detected (NOT DETECT); Entamoeba Histolytica Not Detected (NOT DETECT); Enteroaggregative E. coli-EAEC Not Detected (NOT DETECT); Enteropathogenic E. coli-EPEC Not Detected (NOT DETECT); Enterotoxigenic E. coli-ETEC Not Detected (NOT DETECT); Giardia Lamblia Not Detected (NOT DETECT); Norovirus GI/GII Not Detected (NOT DETECT); Plesiomonas Shigelloides Not Detected (NOT DETECT); Rotavirus A Not Detected (NOT DETECT); Salmonella Sp Not Detected (NOT DETECT); Sapovirus Not Detected (NOT DETECT); Shiga Toxin-prod E. coli-STEC Not Detected (NOT DETECT); Shigella/Enteroin E. coli-EIEC Not Detected (NOT DETECT); Vibrio Cholerae Not Detected (NOT DETECT); Vibrio Sp Not Detected (NOT DETECT); Yersinia Enterocolitica Not Detected (NOT DETECT)
[2023-07-23 19:59] VITALS: BP 112/85
--- NOTE | 2023-07-24 04:23 | NUR ---
SHIFT SUMMARY PATIENT IS ALERT AND ORIENTED. PATIENT HAS HAD NO ACUTE EVENTS THIS SHIFT. VITAL SIGNS REVIEWED. PATIENT HAS BEEN AWAKE MOST OF SHIFT, STRUGGLING TO GET COMFORTABLE AND IS CONSTANTLY COLD. IV FLUIDS HAVE BEEN INFUSING AT 125/HR ALL SHIFT. PATIENT HAS NOT COMPLAINED OF PAIN, NAUSEA, SOB OR VOMITTING THIS SHIFT. BED IN LOCKED AND LOWEST POSITION. CALL LIGHT IN PLACE. WILL MONITOR UNTIL SHIFT CHANGE.
[2023-07-24 04:54] LABS: BASOPHILS ABSOLUTE AUTO 0.02 K/mm3 (0.00-0.23); BASOPHILS PERCENT AUTO 0 % (0-2); EOSINOPHILS ABSOLUTE AUTO 0.07 K/mm3 (0.00-0.68); EOSINOPHILS PERCENT AUTO 1 % (0-6); Hematocrit 23.2 % (37.0-53.0); IMMATURE GRAN ABSOLUTE AUTO 0.03 K/mm3 (0.00-0.10); IMMATURE GRAN PERCENT AUTO 1 % (0-1); LYMPHOCYTES ABSOLUTE AUTO 1.11 K/mm3 (0.84-5.20); LYMPHOCYTES PERCENT AUTO 18 % (21-46); MONOCYTES ABSOLUTE AUTO 0.64 K/mm3 (0.16-1.47); MONOCYTES PERCENT AUTO 10 % (4-13); Mean Corpuscular HGB 29.6 pg (26.0-34.0); Mean Corpuscular HGB Conc 34.5 g/dL (31.5-36.5); Mean Corpuscular Volume 86 fL (80-100); Mean Platelet Volume 10.4 fL (9.1-12.4); NEUTROPHILS ABSOLUTE AUTO 4.39 K/mm3 (1.96-9.15); NEUTROPHILS PERCENT AUTO 70 % (41-73); Platelet Count 146 K/mm3 (150-400); RDW Coefficient Variation 14.9 % (11.7-14.2); RDW Standard Deviation 46.1 fL (35.1-46.3); White Blood Cell Count 6.26 K/mm3 (4.00-11.30)
[2023-07-24 05:08] LABS: Albumin, Blood 2.6 g/dL (3.4-5.0); Albumin/Globulin Ratio 1.1 (0.8-1.8); Bilirubin, Total 0.5 mg/dL (0.1-1.0); Bun/Creatinine Ratio 17.6 (12.0-20.0); Calcium, Blood 7.5 mg/dL (8.5-10.1); Creatinine, Blood 2.56 mg/dL (0.60-1.20); Globulin, Blood 2.3 g/dL (2.2-4.0); Total Protein, Blood 4.9 g/dL (6.4-8.2)
[2023-07-24 05:26] VITALS: BP 108/76
[2023-07-24 07:43] VITALS: BP 115/70
[2023-07-24 16:13] VITALS: BP 108/72
--- NOTE | 2023-07-24 17:03 | NUR ---
SHIFT SUMMARY PT AxOx4, COOPERATIVE WITH CARE. PT WORKED WITH PHYSICAL THERAPY TODAY. SBA IN THE ROOM FOR ASSIST WITH IV POLE, OTHERWISE TRANSFERS INDEPENDENTLY. PT IS RECEIVING IV FLUIDS AND APPETITE STIMULANTS TODAY. PT REPORTS SIGNIFICANT INCREASE IN APPETITE AND EFFORT IN FINISHING HIS MEALS. PT DENIES PAIN THIS SHIFT. CURRENT PLAN IS EXPECTED DISCHARGE TOMORROW. PT IS CURRENTLY SITTING IN CHAIR. CALL LIGHT IN REACH. DENIES ANY NEEDS AT THIS TIME.
[2023-07-24 19:29] VITALS: BP 106/56
[2023-07-25 02:04] VITALS: BP 145/63
--- NOTE | 2023-07-25 04:20 | NUR ---
SHIFT SUMMARY PATIENT IS ALERT AND ORIENTED X3 WITH OCCASIONAL CONFUSION. PATIENT HAS HAD NO ACUTE EVENTS THIS SHIFT. VITAL SIGNS REVIEWED. PATIENT HAS NOT COMPLAINED OF NAUSEA, SOB, VOMITTING OR PAIN THIS SHIFT. IV BAG HAS FINISHED AND PATIENT DISCONNECTED FROM FLUIDS ORDERED. BED IN LOCKED AND LOWEST POSITION. CALL LIGHT IN PLACE. WILL MONITOR UNTIL SHIFT CHANGE.
[2023-07-25 05:26] LABS: Albumin, Blood 2.8 g/dL (3.4-5.0); Anion Gap 7 mmol/L (6-16); Blood Urea Nitrogen 33 mg/dL (8-24); Bun/Creatinine Ratio 15.3 (12.0-20.0); CO2, Blood 17 mmol/L (21-32); Calcium, Blood 7.5 mg/dL (8.5-10.1); Chloride, Blood 105 mmol/L (98-108); Creatinine, Blood 2.15 mg/dL (0.60-1.20); Ferritin, Serum 316 ng/mL (26-388); Glomerular Filtration Rate 32 (60-); Glucose, Blood 92 mg/dL (70-99); Iron Serum 51 ug/dL (65-175); Percent Saturation 25.4 % (20.0-50.0); Phosphorus, Blood 2.6 mg/dL (2.5-4.9); Potassium, Blood 4.3 mmol/L (3.5-5.5); Sodium, Blood 129 mmol/L (136-145); Total Iron Binding Capacity 201 ug/dL (250-450)
[2023-07-25 08:40] VITALS: BP 141/73
[2023-07-25 15:40] VITALS: BP 128/87
--- NOTE | 2023-07-25 17:58 | NUR ---
SHIFT SUMMARY: PT IS A 68 YEAR OLD MALE HERE FOR AN ACUTE KIDNEY INJURY AND DEHYDRATION. A&O X 4 HE HAS BEEN HAVING EPISODES OF DIARRHEA PERIODICALLY THOUGHOUT THE DAY, BUT HAS NOW IMPROVED SINCE STARTING IMMODIUM. HE HAS CONSISTANTLY BEEN REFUSING MEALS AND WATER. HE DRINKS SODA. HE IS A ONE BY ASSIST/INDEPENDENT TO THE RESTROOM. HE IS IN BED, EATING HIS DINNER, HAS HIS CALL LIGHT WITHIN REACH, AND NOT SHOWING ANY SIGNS OR SYMPTOMS OF DISTRESS. PLAN OF CARE ONGOING.
--- NOTE | 2023-07-25 18:35 | NUR ---
NS INFUSION: WENT INTO PATIENT'S ROOM AND NOTIFIED THAT THE IV PUMP THAT WAS RUNNING NORMAL SALINE WAS OFF. UNABLE TO COLLECT TOTAL VOLUME INFUSED FOR THE SHIFT. RESTARTED NS INFUSION.
[2023-07-25 19:39] VITALS: BP 148/92
--- NOTE | 2023-07-26 04:59 | NUR ---
SHIFT SUMMARY PATIENT IS ALERT AND ORIENTED. PATIENT HAS HAD NO ACUTE EVENTS THIS SHIFT. VITAL SIGNS REVIEWED. PATIENT HAD ONE INSTANCE OF SOB THIS SHIFT. BIPAP PUT ON BY RT AND SYMPTOMS RESOLVED. PATIENT HAS BEEN RESTING MOST OF SHIFT. PATIENT HAS HAD NO COMPLAINTS OF PAIN, NAUSEA OR VOMITTING THIS SHIFT. IV FLUIDS INFUSING ORDERED. BED IN LOCKED AND LOWEST POSITION. CALL LIGHT IN PLACE. WILL MONITOR UNTIL SHIFT CHANGE.
[2023-07-26 05:04] VITALS: BP 126/81
[2023-07-26 06:51] LABS: Calcium, Blood 7.8 mg/dL (8.5-10.1); Creatinine, Blood 1.91 mg/dL (0.60-1.20)
[2023-07-26 07:48] VITALS: BP 135/73
[2023-07-26 14:05] LABS: Potassium, Blood 4.2 mmol/L (3.5-5.5)
[2023-07-26] MEDS ORDERED: LOPE2C PO ×2 (15:13)
--- NOTE | 2023-07-26 18:28 | NUR ---
PT DISCHARGED. THE PT AFTER COMING OUT IN THE MULLER AND YELLING THAT HE WAS LEAVING RIGHT NOW, AGREED TO LISTEN, AND VERBALIZED UNDERSTANDING OF THE DC INSTRUCTIONS AND ACCEPTED THE DC PACKET. THE PT WAS INSTRUCTED TO FOLLOW UP WITH HIS PCP AT THE [facility] PRIOR TO DC. THE PT WAS TRANSFERED TO THE FRONT VIA WHEELCHAIR ACCOMPANIED BY THE VEGETABLE WASHER
== END 2023-07-26 15:43 | disposition home or self-care (01) | DRG 683 ==
LOC: ER 16:05 → MEDS 21:25
PROVIDERS: Hospitalist; Internal Medicine; Nurse Practitioner Acute Care; Physician Assistant; ADMIT Internal Medicine
PROC: 5A09357 Assistance with Respiratory Ventilation, Less than 24 Consecutive Hours, Continuous Positive Airway Pressure (ICD-10-PCS; principal; 2023-07-21)
DX: N17.9 Acute kidney failure, unspecified (principal); E87.1 Hypo-osmolality and hyponatremia; I12.9 Hypertensive chronic kidney disease with stage 1 through stage 4 chronic kidney disease, or unspecified chronic kidney disease; E11.22 Type 2 diabetes mellitus with diabetic chronic kidney disease; N18.30 Chronic kidney disease, stage 3 unspecified; D63.1 Anemia in chronic kidney disease; E86.0 Dehydration; N32.89 Other specified disorders of bladder; R19.7 Diarrhea, unspecified; G47.33 Obstructive sleep apnea (adult) (pediatric); E78.5 Hyperlipidemia, unspecified; I48.0 Paroxysmal atrial fibrillation; J44.9 Chronic obstructive pulmonary disease, unspecified; F10.11 Alcohol abuse, in remission; F17.210 Nicotine dependence, cigarettes, uncomplicated; E86.1 Hypovolemia; F41.9 Anxiety disorder, unspecified; Z79.51 Long term (current) use of inhaled steroids; Z79.4 Long term (current) use of insulin; Z79.899 Other long term (current) drug therapy; Z79.82 Long term (current) use of aspirin; Z90.89 Acquired absence of other organs; Z98.890 Other specified postprocedural states; Z95.820 Peripheral vascular angioplasty status with implants and grafts; Z59.00 Homelessness unspecified; X32.XXXA Exposure to sunlight, initial encounter
CPT/HCPCS: 36415; 51798; 74018; 76770; 80048; 80053; 80069; 81001; 82435; 82550; 82607; 82728; 82746; 82803; 82947; 83540; 83550; 83735; 84132; 84295; 85025; 87507; 93005; 93010; 94640; 94660; 94664; 94760; 94762; 97110; 97116; 97162; 97165; 97535; 99285-25; A9270; J1644; J3411; J7030; Q0167

== ENCOUNTER 2023-07-29 02:16 | Emergency (ER) | payer OTHER ==
[~2023-07-29] VITALS: Ht 170.2 cm; Wt 81.7 kg
[~2023-07-29 02:16] MED LIST changes: +LOPE2C PO
[2023-07-29 02:52] LABS: BASOPHILS ABSOLUTE AUTO 0.04 K/mm3 (0.00-0.23); BASOPHILS PERCENT AUTO 1 % (0-2); EOSINOPHILS ABSOLUTE AUTO 0.07 K/mm3 (0.00-0.68); EOSINOPHILS PERCENT AUTO 1 % (0-6); Hematocrit 28.7 % (37.0-53.0); Hemoglobin 9.6 g/dL (13.5-17.5); IMMATURE GRAN ABSOLUTE AUTO 0.04 K/mm3 (0.00-0.10); IMMATURE GRAN PERCENT AUTO 1 % (0-1); LYMPHOCYTES ABSOLUTE AUTO 0.68 K/mm3 (0.84-5.20); LYMPHOCYTES PERCENT AUTO 8 % (21-46); MONOCYTES ABSOLUTE AUTO 0.79 K/mm3 (0.16-1.47); MONOCYTES PERCENT AUTO 9 % (4-13); Mean Corpuscular HGB 29.4 pg (26.0-34.0); Mean Corpuscular HGB Conc 33.4 g/dL (31.5-36.5); Mean Corpuscular Volume 88 fL (80-100); Mean Platelet Volume 10.5 fL (9.1-12.4); NEUTROPHILS ABSOLUTE AUTO 7.07 K/mm3 (1.96-9.15); NEUTROPHILS PERCENT AUTO 81 % (41-73); Platelet Count 240 K/mm3 (150-400); RDW Coefficient Variation 16.1 % (11.7-14.2); RDW Standard Deviation 50.4 fL (35.1-46.3); Red Blood Cell Count 3.27 M/mm3 (4.30-5.90); White Blood Cell Count 8.69 K/mm3 (4.00-11.30)
[2023-07-29 03:15] LABS: Albumin, Blood 3.3 g/dL (3.4-5.0); Bilirubin, Total 0.6 mg/dL (0.1-1.0); Bun/Creatinine Ratio 9.9 (12.0-20.0); Calcium, Blood 8.1 mg/dL (8.5-10.1); Creatinine, Blood 1.72 mg/dL (0.60-1.20); Globulin, Blood 3.4 g/dL (2.2-4.0); Total Protein, Blood 6.7 g/dL (6.4-8.2)
[2023-07-29 04:13] VITALS: BP 144/87
[2023-07-29] MEDS ORDERED: PRED20 PO (04:16)
[2023-07-29] MEDS ORDERED: DULERA 100 MCG/13 GM INH (04:16)
== END 2023-07-29 04:41 | disposition home or self-care (01) ==
LOC: ER 02:16
PROVIDERS: Emergency Medicine
DX: J44.1 Chronic obstructive pulmonary disease with (acute) exacerbation (principal); D64.9 Anemia, unspecified; I12.9 Hypertensive chronic kidney disease with stage 1 through stage 4 chronic kidney disease, or unspecified chronic kidney disease; E11.22 Type 2 diabetes mellitus with diabetic chronic kidney disease; N18.9 Chronic kidney disease, unspecified; F17.200 Nicotine dependence, unspecified, uncomplicated; E78.5 Hyperlipidemia, unspecified; G47.33 Obstructive sleep apnea (adult) (pediatric); I48.0 Paroxysmal atrial fibrillation; Z79.01 Long term (current) use of anticoagulants; Z79.51 Long term (current) use of inhaled steroids
CPT/HCPCS: 71045; 80053; 85025; 93005; 93010; 94644; 94664; 96374; 99285-25; J2930

== ENCOUNTER 2023-07-29 16:07 | Emergency (ER) | payer OTHER ==
[~2023-07-29] VITALS: Ht 165.1 cm; Wt 72.6 kg
[~2023-07-29 16:07] MED LIST changes: +PRED20 PO
[2023-07-29 16:19] VITALS: BP 138/82
[2023-07-29 18:26] LABS: Base Excess Venous -13.6 mmol/L; Bicarbonate Venous 14.5 mmol/L (24.0-30.0); PCO2 Venous 34.1 mmHg (38-42); pH Blood Venous 7.22 (7.34-7.37)
[2023-07-29 19:11] LABS: Hematocrit 26.2 % (37.0-53.0); Hemoglobin 8.7 g/dL (13.5-17.5); Mean Corpuscular HGB Conc 33.2 g/dL (31.5-36.5); Mean Corpuscular Volume 87 fL (80-100); Mean Platelet Volume 11.6 fL (9.1-12.4); Platelet Count 273 K/mm3 (150-400); RDW Coefficient Variation 16.2 % (11.7-14.2); RDW Standard Deviation 51.2 fL (35.1-46.3); White Blood Cell Count 11.26 K/mm3 (4.00-11.30)
[2023-07-29 19:21] LABS: Bun/Creatinine Ratio 9.5 (12.0-20.0); Calcium, Blood 8.6 mg/dL (8.5-10.1); Creatinine, Blood 1.69 mg/dL (0.60-1.20); Potassium, Blood 4.3 mmol/L (3.5-5.5)
[2023-07-29 20:08] LABS: BAND PERCENT MAN 7 % (0-8); BASOPHILS PERCENT MAN 0 % (0-2); EOSINOPHILS PERCENT MAN 0 % (0-6); LYMPHOCYTES ABSOLUTE MAN 0.11 K/mm3 (0.84-5.20); LYMPHOCYTES PERCENT MAN 1 % (21-46); MONOCYTES ABSOLUTE MAN 0.11 K/mm3 (0.16-1.47); MONOCYTES PERCENT MAN 1 % (4-13); NEUTROPHILS ABSOLUTE MAN 11.03 K/mm3 (1.96-9.15); SEG NEUTROPHILS PERCENT MAN 91 % (41-73); TOTAL CELLS COUNTED 100
[2023-07-29 20:28] LABS: U Amphetamine Screen Not Detected; U Barbituate Screen Not Detected; U Benzodiazapine Screen Not Detected; U Buprenorphine Screen Not Detected; U Cannabinoids Screen DETECTED; U Cocaine Screen Not Detected; U Methadone Screen Not Detected; U Methamphetamine Screen Not Detected; U Opiates Screen Not Detected; U Oxycodone Screen Not Detected; U Phencyclidine Screen Not Detected; U Propoxyphene Screen Not Detected
[2023-07-29 20:50] LABS: Source, Urine Straight Cath
[2023-07-29 20:53] LABS: Appearance, Urine Clear (Clear); Bilirubin, Urine Neg (Neg); Blood, Urine 1+ (Neg); Color, Urine Yellow (P-Yellow); Glucose Qualitative, Urine 3+ (Neg); Ketones, Urine Neg (Neg); Leukocyte Esterase, Urine Neg (Neg); Nitrite, Urine Neg (Neg); Protein, Urine 3+ (Neg); Specific Gravity, Urine 1.015 (1.003-1.022); Urobilinogen, Urine NORM (Normal)
[2023-07-29 21:12] LABS: Bacteria Rare /hpf; Red Blood Cells, Urine 0-2 /hpf (0-2); Squamous Epithelial Cells Few /hpf (Few); White Blood Cells, Urine Not Seen /hpf (0-5)
== END 2023-07-29 22:51 | disposition home or self-care (01) ==
LOC: ER 16:07
PROVIDERS: Emergency Medicine
DX: J44.9 Chronic obstructive pulmonary disease, unspecified (principal); I12.9 Hypertensive chronic kidney disease with stage 1 through stage 4 chronic kidney disease, or unspecified chronic kidney disease; E11.22 Type 2 diabetes mellitus with diabetic chronic kidney disease; N18.9 Chronic kidney disease, unspecified; E87.1 Hypo-osmolality and hyponatremia; E87.20 Acidosis, unspecified; I48.91 Unspecified atrial fibrillation; F17.200 Nicotine dependence, unspecified, uncomplicated; Z79.51 Long term (current) use of inhaled steroids; Z79.52 Long term (current) use of systemic steroids; Z79.899 Other long term (current) drug therapy
CPT/HCPCS: 71260; 80048; 81001; 82803; 84484; 85025; 93005; 93010; 94640; 94664; 96365; 99285-25; J3475; J7030; Q9967

== ENCOUNTER 2023-07-31 10:14 | Emergency (ER) | payer OTHER ==
[~2023-07-31] VITALS: Ht 165.1 cm; Wt 115.7 kg
[2023-07-31 10:43] LABS: BASOPHILS ABSOLUTE AUTO 0.01 K/mm3 (0.00-0.23); BASOPHILS PERCENT AUTO 0 % (0-2); EOSINOPHILS ABSOLUTE AUTO 0.07 K/mm3 (0.00-0.68); EOSINOPHILS PERCENT AUTO 1 % (0-6); Hematocrit 25.2 % (37.0-53.0); Hemoglobin 8.3 g/dL (13.5-17.5); IMMATURE GRAN ABSOLUTE AUTO 0.04 K/mm3 (0.00-0.10); IMMATURE GRAN PERCENT AUTO 1 % (0-1); LYMPHOCYTES ABSOLUTE AUTO 0.64 K/mm3 (0.84-5.20); LYMPHOCYTES PERCENT AUTO 8 % (21-46); MONOCYTES ABSOLUTE AUTO 0.66 K/mm3 (0.16-1.47); MONOCYTES PERCENT AUTO 8 % (4-13); Mean Corpuscular HGB 29.3 pg (26.0-34.0); Mean Corpuscular HGB Conc 32.9 g/dL (31.5-36.5); Mean Corpuscular Volume 89 fL (80-100); NEUTROPHILS ABSOLUTE AUTO 7.15 K/mm3 (1.96-9.15); NEUTROPHILS PERCENT AUTO 83 % (41-73); Platelet Count 299 K/mm3 (150-400); RDW Coefficient Variation 16.5 % (11.7-14.2); RDW Standard Deviation 52.7 fL (35.1-46.3); Red Blood Cell Count 2.83 M/mm3 (4.30-5.90); White Blood Cell Count 8.57 K/mm3 (4.00-11.30)
[2023-07-31 11:14] LABS: Bilirubin, Total 0.5 mg/dL (0.1-1.0); Bun/Creatinine Ratio 6.3 (12.0-20.0); Calcium, Blood 8.3 mg/dL (8.5-10.1); Creatinine, Blood 1.75 mg/dL (0.60-1.20); Globulin, Blood 3.1 g/dL (2.2-4.0); Potassium, Blood 4.2 mmol/L (3.5-5.5); Total Protein, Blood 6.1 g/dL (6.4-8.2)
[2023-07-31] MEDS ORDERED: AZIT250 PO (12:12)
[2023-07-31] MEDS ORDERED: ALBU90OI INH (12:12)
[2023-07-31] MEDS ORDERED: ATROVENT HFA12.9 GM INH (12:12)
[2023-07-31 12:15] VITALS: BP 127/73
== END 2023-07-31 12:25 | disposition home or self-care (01) ==
LOC: ER 10:14
PROVIDERS: Student in an Organized Health Care Education/Training Program
DX: J44.1 Chronic obstructive pulmonary disease with (acute) exacerbation (principal); Z79.52 Long term (current) use of systemic steroids; I12.9 Hypertensive chronic kidney disease with stage 1 through stage 4 chronic kidney disease, or unspecified chronic kidney disease; E11.22 Type 2 diabetes mellitus with diabetic chronic kidney disease; E78.5 Hyperlipidemia, unspecified; G47.33 Obstructive sleep apnea (adult) (pediatric); I48.0 Paroxysmal atrial fibrillation; N18.4 Chronic kidney disease, stage 4 (severe); F17.200 Nicotine dependence, unspecified, uncomplicated; F10.20 Alcohol dependence, uncomplicated
CPT/HCPCS: 71046; 80053; 82947; 85025; 93005; 93010; 94644; 94664; 99284-25; A9270; J7512

== ENCOUNTER 2023-08-01 07:40 | Inpatient (IN) | payer OTHER ==
[~2023-08-01] VITALS: Ht 165.1 cm; Wt 74.9 kg
[~2023-08-01 07:40] MED LIST changes: +ATROVENT HFA12.9 GM INH; +AZIT250 PO
[2023-08-01 08:04] LABS: BASOPHILS ABSOLUTE AUTO 0.01 K/mm3 (0.00-0.23); BASOPHILS PERCENT AUTO 0 % (0-2); EOSINOPHILS ABSOLUTE AUTO 0.01 K/mm3 (0.00-0.68); EOSINOPHILS PERCENT AUTO 0 % (0-6); Hematocrit 25.2 % (37.0-53.0); Hemoglobin 8.5 g/dL (13.5-17.5); IMMATURE GRAN ABSOLUTE AUTO 0.05 K/mm3 (0.00-0.10); IMMATURE GRAN PERCENT AUTO 0 % (0-1); LYMPHOCYTES ABSOLUTE AUTO 0.36 K/mm3 (0.84-5.20); LYMPHOCYTES PERCENT AUTO 2 % (21-46); MONOCYTES ABSOLUTE AUTO 1.39 K/mm3 (0.16-1.47); MONOCYTES PERCENT AUTO 8 % (4-13); Mean Corpuscular HGB 29.3 pg (26.0-34.0); Mean Corpuscular HGB Conc 33.7 g/dL (31.5-36.5); Mean Corpuscular Volume 87 fL (80-100); Mean Platelet Volume 10.8 fL (9.1-12.4); NEUTROPHILS ABSOLUTE AUTO 14.68 K/mm3 (1.96-9.15); NEUTROPHILS PERCENT AUTO 89 % (41-73); Platelet Count 326 K/mm3 (150-400); RDW Coefficient Variation 16.5 % (11.7-14.2); RDW Standard Deviation 51.6 fL (35.1-46.3)
[2023-08-01 08:12] LABS: Base Excess Venous -8.6 mmol/L; Bicarbonate Venous 17.9 mmol/L (24.0-30.0); PCO2 Venous 39.4 mmHg (38-42); pH Blood Venous 7.28 (7.34-7.37)
[2023-08-01 08:23] LABS: BASOPHILS PERCENT MAN 0 % (0-2); EOSINOPHILS PERCENT MAN 0 % (0-6); LYMPHOCYTES ABSOLUTE MAN 0.99 K/mm3 (0.84-5.20); LYMPHOCYTES PERCENT MAN 6 % (21-46); MONOCYTES ABSOLUTE MAN 0.99 K/mm3 (0.16-1.47); MONOCYTES PERCENT MAN 6 % (4-13); NEUTROPHILS ABSOLUTE MAN 14.52 K/mm3 (1.96-9.15); SEG NEUTROPHILS PERCENT MAN 88 % (41-73); TOTAL CELLS COUNTED 100
[2023-08-01 08:36] LABS: Bun/Creatinine Ratio 8.3 (12.0-20.0); Calcium, Blood 8.3 mg/dL (8.5-10.1); Creatinine, Blood 1.69 mg/dL (0.60-1.20); Potassium, Blood 4.2 mmol/L (3.5-5.5)
[2023-08-01 09:18] LABS: Adenovirus Not Detected (NOT DETECT); Bordetella pertussis Not Detected (NOT DETECT); Chlamydophila pneumoniae Not Detected (NOT DETECT); Coronavirus 229E Not Detected (NOT DETECT); Coronavirus HKU1 Not Detected (NOT DETECT); Coronavirus NL63 Not Detected (NOT DETECT); Coronavirus OC43 Not Detected (NOT DETECT); Human Metapneumovirus Not Detected (NOT DETECT); Human Rhinovirus/Enterovirus Not Detected (NOT DETECT); Influenza A/2009-H1 Not Detected (NOT DETECT); Influenza A/H1 Not Detected (NOT DETECT); Influenza A/H3 Not Detected (NOT DETECT); Influenza B Not Detected (NOT DETECT); Mycoplasma pneumoniae Not Detected (NOT DETECT); Parainfluenza Virus 1 Not Detected (NOT DETECT); Parainfluenza Virus 2 Not Detected (NOT DETECT); Parainfluenza Virus 3 Not Detected (NOT DETECT); Parainfluenza Virus 4 Not Detected (NOT DETECT); Respiratory Syncytial Virus Not Detected (NOT DETECT); SARS-Cov-2 (COVID-19), BioFire Not Detected (NOT DETECT)
[2023-08-01 15:00] VITALS: BP 133/81
--- NOTE | 2023-08-01 18:31 | NUR ---
SHIFT SUMMARY; ER ADMIT DURING SHIFT. MOVES SELF FROM ER GURNEY TO BED WITH MINIMAL ASSITANCE. 2L 02 VIA NC ON ARRIVAL. 1L NC AT END OF SHIFT. USES URINAL AT BEDSIDE, REPOSITIONS SELF NEEDED, VSS, SATS >94%. A/A/OX3 YELLS OUT AT TIMES RANDOMLY AND APPEARS TO BE TALKING TO SELF. IGNITION RISK ASSESSED. CIGARETTES AND MARIJUANA LOCKED IN MANUFACTURING PROJECT MANAGER HALLWAY. NO SALES MARKETING FOUND. PT WORRIED ABOUT VAN THAT WAS LEFT AT [facility]. ASKS IF SOMEONE CAN GO PICK IT UP. TOLD PT CANNOT DO THAT, CALLED [facility] AT PT REQUEST AND THEY STATED THEY CAN LEAVE IT THERE FOR A COUPLE DAYS. VAN VERIFIED TO BE LOCKED BY [facility] AT PT REQUEST. COOPERATIVE WITH CARE, WILL CONTINUE TO MONITOR AND TREAT UNTIL CHANGE OF SHIFT.
[2023-08-01 20:03] VITALS: BP 143/76
[2023-08-01 23:15] VITALS: BP 137/77
[2023-08-02] VITALS (8 sets, daily range): BP systolic 128–170; BP diastolic 64–100
--- NOTE | 2023-08-02 02:04 | NUR ---
THIS RN RECIEVED REPORT FROM [place]. CARE ASSUMPTION AT THIS TIME. PATIENT RESTING IN BED. DENIES NEEDS. CALL LIGHT IN REACH. ON ROOM AIR SATING ABOVE 95%. TELE SHOW SR/ST WITH HR 90-110'S. DENIES CHEST PAIN/PRESSURE. DRINKING SODA. UP WITH ONE PERSON ASSIST. DENIES NEEDS AT THIS TIME.
--- NOTE | 2023-08-02 05:55 | NUR ---
SHIFT SUMMARY: PATIENT REMAINS ALERT AND ORIENTED BUT FORGETFUL UPON WAKING. SBA TO USE URINAL. ON ROOM AIR SATING MID 90'S. SOB WITH EXCERTION. INSPIRATORY WHEEZE IN LOWER LOBES. BREATHING TREATMENTS PROVIDED THROUGHOUT THE NIGHT. TELE CONTINUES TO SHOW SR. NO TELE EVENTS THROUGHOUT THE NIGHT. BP STABLE. CALL LIGHT IN REACH. PATIENT SLEEPING ON RIGHT SIDE AT THIS TIME, DENIES NEEDS.
[2023-08-02 09:19] LABS: BASOPHILS PERCENT AUTO 0 % (0-2); EOSINOPHILS PERCENT AUTO 0 % (0-6); Hematocrit 23.3 % (37.0-53.0); Hemoglobin 7.9 g/dL (13.5-17.5); IMMATURE GRAN ABSOLUTE AUTO 0.08 K/mm3 (0.00-0.10); IMMATURE GRAN PERCENT AUTO 1 % (0-1); LYMPHOCYTES PERCENT AUTO 2 % (21-46); MONOCYTES ABSOLUTE AUTO 0.29 K/mm3 (0.16-1.47); MONOCYTES PERCENT AUTO 2 % (4-13); Mean Corpuscular HGB 29.3 pg (26.0-34.0); Mean Corpuscular HGB Conc 33.9 g/dL (31.5-36.5); Mean Corpuscular Volume 86 fL (80-100); Mean Platelet Volume 10.8 fL (9.1-12.4); NEUTROPHILS PERCENT AUTO 96 % (41-73); Platelet Count 307 K/mm3 (150-400); RDW Coefficient Variation 16.2 % (11.7-14.2); White Blood Cell Count 13.37 K/mm3 (4.00-11.30)
[2023-08-02 09:30] LABS: Base Excess Venous -10.3 mmol/L; Bicarbonate Venous 16.6 mmol/L (24.0-30.0); PCO2 Venous 33.7 mmHg (38-42); pH Blood Venous 7.29 (7.34-7.37)
[2023-08-02 09:38] LABS: Bun/Creatinine Ratio 11.2 (12.0-20.0); Calcium, Blood 8.4 mg/dL (8.5-10.1); Creatinine, Blood 1.6 mg/dL (0.60-1.20); Potassium, Blood 4.4 mmol/L (3.5-5.5)
--- NOTE | 2023-08-02 09:50 | NUR ---
PT COMPLAINING OF SOB OF DYSPNEA ON RA. 2L NC APPLIED SATS >90%. PT EDUCATED ON SITTING UP TO EASE BREATHING.
--- NOTE | 2023-08-02 10:34 | NUR ---
PT TITRATED OFF SUPPLEMENTAL O2 WITHOUT DYSPNEA OR SOB
--- NOTE | 2023-08-02 16:10 | NUR ---
PT PERSONAL BELONGINGS (BARON AND CARDS) LOCKED IN SECURITY OFFICE. RECEIPT PLACED IN PT CHART
--- NOTE | 2023-08-02 17:34 | NUR ---
PT FALL PT ATTEMPTED TO GATHER BELONGINGS AND LEAVE. HE FELL TO THE GROUND AT THE FOOT OF HIS BED AND CALLED OUT FOR HELP. PT WAS ASSESSED BY [facility] AND THE PHYSICIAN WAS NOTIFIED. PT IS BACK IN BED WITH THE PHYSICIAN AT BEDSIDE. PT CLAIMS HIS HEAD HURTS SLIGHTLY FROM THE FALL. HIS RIGHT HAND HAS TWO SKIN TEARS APPROXIMATELY THE SIZE OF DIMES. IT HAS BEEN BANDAGED AND COVERED. VITALS TAKEN AND RECORDED. PT EDUCATED ON FALL PREVENTION AND BED ALARM IS SET.
--- NOTE | 2023-08-02 18:37 | NUR ---
SHIFT SUMMARY: PT HAS BEEN EDUCATED MULTIPLE TIMES ON THE USE OF THE CALL LIGHT BUT CONTINUES TO CALL OUT IF HE NEEDS ANYTHING. HE DOES NOT LIKE THE TASTE OF WATER AND HAS REQUESTED SODA ALL DAY DESPITE ELEVATED BLOOD SUGARS. HE HAS BEEN ABLE TO MAINTAIN SP02 >90% ON ROOM AIR WITH THE OCCASIONAL SOB. PT EDUCATED ON NEED TO CALL FOR STAFF IF HE NEEDS TO GET UP. BED ALARM ON POST FALL AND BED IN LOWEST POSITION. VSS, NO PAIN OR CONCERNS AT THIS TIME.
--- NOTE | 2023-08-02 22:59 | NUR ---
INTERMITTENT SCREAMING FOR HELP, THAT HE COULDNT BREATHE. O2 SATS 99%. NOT COOPERATIVE WITH REDIRECTION EACH TIME. CALL PLACED TO MD. MD ORDERED ONE TIME DOSE OF ATIVAN 2MG IV. MED GIVEN, SEE MAR. DIRECTED TO BREATHE DEEP IN NOSE AND OUT MOUTH. REORIETED TO USE OF CALL LIGHT. HOB ELEVATED. CALMING DOWN AT THIS TIME. CALL LIGHT IN REACH. WILL CONTINUE TO MONITOR
--- NOTE | 2023-08-03 00:17 | NUR ---
DR CORADO (FEMALE) CALLED FLOOR RE DR NICKERSON ORDERING 1 DOSE OF ATIVAN EARLIER. SHE DISCUSSED HE HAD AN ATIVAN BEFORE ONE TIME ONLY. AND DISCUSSED HIS NEURO CHECKS. NO NOTED ADVERSE S/S BEFORE, CURRENTLY RESTING DEEPLY WITH ATIVAN BEING GIVEN. NOTIFIED RE HE WAS SCREAMING OUT, NOT REDIRECTABLE, SCREAMING THAT HE COULDNT BREATHE BUT WOULD SAT IN THE 90'S TO 100% WHEN CHECKED. NOTED SEVERE ANXIETY WAS THE REASON HE WAS GIVEN THE ATIVEN. SHE VOICED UNDERSTANDING AND WOULD DISCUSS IT WITH THE DAY SHIFT AND ENCOURAGED ME TO PASS IT ON TO THE DAY SHIFT RE ASSESSMENT FOR POSSIBLE ANXIETY MED. CALL LIGHT IN REACH
--- NOTE | 2023-08-03 00:43 | NUR ---
RESTING WITH DEEP BREATHS. OCCASIONAL MOVEMENT OF FEET AND ARMS. HOB ELEVATED. CALL LIGHT IN REACH. RAILS UP X 3 FOR SAFETY. WILL CONTINUE TO MONITOR
--- NOTE | 2023-08-03 01:19 | NUR ---
RESTING QUIETLY. NO NOTED S/S ACUTE DISTRESS. CALL LIGHT IN REACH
--- NOTE | 2023-08-03 03:13 | NUR ---
EDITOR FARM JOURNAL SUMMARY VSS. WAS TRANSFERRED TO FLOOR EARLIER FROM THE PCU WITH DX OF ACUTE RESP FAILURE. DWARF TREE GROWER REPORTED PT INTERMITTENTLY SCREAMING THAT HE COULDNT BREATHE BUT SATS WERE HIGH 90'S TO 100%. RECENT FALL IN PCU WELL WITH NEURO CHECKS. PT CAME TO FLOOR AND CONTINUED TO SCREAM OUT THAT HE COULDNT BREATHE AND WOULD NOT REDIRECT, VERY ANXIOUS. MD WAS NOTIFIED AND ATVAN 2 MG IV X 1 WAS ORDERED. MED ADMINISTERED AND PT WAS COACHED RE BREATHING IN THROUGH NOSE AND OUT THROUGH MOUTH SLOWLY AND DEEPLY. SOON BECAME MORE CALM AND WENT TO SLEEP. HAS BEEN RESTING QUIETLY WITHOUT NOTED DISTRESS SINCE. 02 SATS 90'S - 100% WHEN CHECKED. NURSE DISCUSSED PT ANXIETY LEVELS WITH MD BRENDAN TO DISCUSS ANXIETY MEDS WITH AM MD AND NURSE TO PASS IT ON TO AM RN FOR FOLLOW UP. WILL CONTNIUE TO MONITOR. CALL LIGHT IN REACH. RAILS UP X 3 AND BED ALARM ON FOR SAFETY.
[2023-08-03 04:50] LABS: BASOPHILS ABSOLUTE AUTO 0.01 K/mm3 (0.00-0.23); BASOPHILS PERCENT AUTO 0 % (0-2); EOSINOPHILS PERCENT AUTO 0 % (0-6); Hematocrit 24.6 % (37.0-53.0); Hemoglobin 8.3 g/dL (13.5-17.5); IMMATURE GRAN ABSOLUTE AUTO 0.11 K/mm3 (0.00-0.10); IMMATURE GRAN PERCENT AUTO 1 % (0-1); LYMPHOCYTES ABSOLUTE AUTO 0.35 K/mm3 (0.84-5.20); LYMPHOCYTES PERCENT AUTO 2 % (21-46); MONOCYTES ABSOLUTE AUTO 0.52 K/mm3 (0.16-1.47); MONOCYTES PERCENT AUTO 3 % (4-13); Mean Corpuscular HGB 29.4 pg (26.0-34.0); Mean Corpuscular HGB Conc 33.7 g/dL (31.5-36.5); Mean Corpuscular Volume 87 fL (80-100); NEUTROPHILS ABSOLUTE AUTO 14.34 K/mm3 (1.96-9.15); NEUTROPHILS PERCENT AUTO 94 % (41-73); Platelet Count 342 K/mm3 (150-400); RDW Coefficient Variation 16.2 % (11.7-14.2); RDW Standard Deviation 50.6 fL (35.1-46.3); Red Blood Cell Count 2.82 M/mm3 (4.30-5.90); White Blood Cell Count 15.33 K/mm3 (4.00-11.30)
[2023-08-03 05:11] VITALS: BP 184/98
[2023-08-03 05:19] LABS: Bun/Creatinine Ratio 11.9 (12.0-20.0); Calcium, Blood 8.4 mg/dL (8.5-10.1); Creatinine, Blood 1.59 mg/dL (0.60-1.20); Magnesium, Blood 1.8 mg/dL (1.6-2.4); Potassium, Blood 5.2 mmol/L (3.5-5.5)
--- NOTE | 2023-08-03 05:36 | NUR ---
NEURO CHECK DONE EARLIER, WAS AWAKENED FOR BLOOD DRAW. PARAMJIT. SEATER ASSEMBLER EQUAL. DORSI/PLANTAR FLEXION EQUAL. SOME VERTIGO WHEN ATTEMPTING TO STAND TO VOID. REDIRECTED, ASSISTED WITH URINAL. BACK INTO BED. HOB ELEVATED. RT TREATMENT FOR C/O SOB. VOICED THAT HE HAD SLEPT WELL AND WAS BREATHING WELL WHILE SLEEPING (DUE TO ATIVAN GIVEN EARLIER). DISCUSSED ANX MED. AM NURSE/MD TO FOLLOW UP WITH POTENTIAL MED. CALL LIGHT IN REACH
[2023-08-03 07:18] VITALS: BP 157/86
--- NOTE | 2023-08-03 13:46 | NUR ---
pt found trying to get out of bed and yelling and swearing. He wants a coke and to go smoke. Got him to sit back down after much swearing on everyones part. Advised him to stop swearing at the young nurses and signals officer's careing for him. Gave him the be a gentlman talk. He is cold and feeling with drawls and feeling cooped up. Got him in his sweatshirt and bendled up and some lunch. 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 He get very labored with any excertion. very impulsive some diffculty tracking conversations. He appears and responds ans starting to get for frail and forgetful. May need placement. He has a daughter in [place] tried to contact her no answer. Suggest [employer] consult for assistance. He is to elderly and frail to be out on the streets and in hotels. Fear for his safety. He is a high readmission risk. pt kps score is 50%
[2023-08-03 15:25] VITALS: BP 157/81
[2023-08-03 17:11] VITALS: BP 129/74
--- NOTE | 2023-08-03 18:35 | NUR ---
SHIFT SUMMARY A/O X3-4. AMBULATING WELL W/ SBA TO BATHROOM AND TRANSFERING TO CHAIR W/ NURSE ASSIST. VOIDING WELL. IV FLUIDS PER EMAR. TOLERATING PO DIET. INCREASED ANXIETY THROUGHOUT SHIFT, CALLED DR AND DR ORDERED PRN ATIVAN SEE EMAR. REQUESTING BREATHING TREATMENTS THROUGHOUT SHIFT. RESPIRATORY PLACED PT ON BIPAP DUE TO INCREASED RESPIRATIONS, AND INCREASE IN ACCESSORY MUSCLE USE. GAVE ATIVAN TO HELP WITH ANXIOUSNESS. PT SLEPT FOR A FEW HOURS AND AWOKE FOR DINNER. INTERMITTENT CONFUSION THIS SHIFT. WILL REPORT TO ONCOMING RN.
[2023-08-03 21:50] VITALS: BP 146/86
[2023-08-04 03:37] VITALS: BP 166/96
[2023-08-04 05:03] LABS: BASOPHILS ABSOLUTE AUTO 0.01 K/mm3 (0.00-0.23); BASOPHILS PERCENT AUTO 0 % (0-2); EOSINOPHILS PERCENT AUTO 0 % (0-6); Hematocrit 21.5 % (37.0-53.0); Hemoglobin 7.2 g/dL (13.5-17.5); IMMATURE GRAN ABSOLUTE AUTO 0.18 K/mm3 (0.00-0.10); IMMATURE GRAN PERCENT AUTO 2 % (0-1); LYMPHOCYTES ABSOLUTE AUTO 0.26 K/mm3 (0.84-5.20); LYMPHOCYTES PERCENT AUTO 2 % (21-46); MONOCYTES ABSOLUTE AUTO 0.63 K/mm3 (0.16-1.47); MONOCYTES PERCENT AUTO 5 % (4-13); Mean Corpuscular HGB 28.9 pg (26.0-34.0); Mean Corpuscular HGB Conc 33.5 g/dL (31.5-36.5); Mean Corpuscular Volume 86 fL (80-100); Mean Platelet Volume 11.1 fL (9.1-12.4); NEUTROPHILS ABSOLUTE AUTO 10.99 K/mm3 (1.96-9.15); NEUTROPHILS PERCENT AUTO 91 % (41-73); NRBC ABSOLUTE 0.02 K/mm3 (0.00-0.02); NRBC Auto 0.2 /100 WBC (0.0-0.2); Platelet Count 325 K/mm3 (150-400); RDW Coefficient Variation 16.1 % (11.7-14.2); RDW Standard Deviation 50.7 fL (35.1-46.3); Red Blood Cell Count 2.49 M/mm3 (4.30-5.90); White Blood Cell Count 12.07 K/mm3 (4.00-11.30)
[2023-08-04 05:34] LABS: Bun/Creatinine Ratio 14.1 (12.0-20.0); Calcium, Blood 8.5 mg/dL (8.5-10.1); Creatinine, Blood 1.63 mg/dL (0.60-1.20); Potassium, Blood 5.1 mmol/L (3.5-5.5)
[2023-08-04 07:39] VITALS: BP 136/76
--- NOTE | 2023-08-04 07:41 | NUR ---
END OF SHIFT SUMMARY PT A&O x3 WITH INTERMITTENT CONFUSION. PT RE-DIRECTABLE. PT COMPLIANT WITH MEDICATION REGIMEN. TAKES PILLS WHOLE IN APPLESAUCE. PT DENIED CHEST PAIN. SOB WITH EXERTION NOTED. VSS, AFEBRILE. PT REMINDED TO CALL FOR ASSISTANCE WITH TRANSFERING. BED IN THE LOWEST POSITION, BED ALARM TURNED ON. PT 1P SBA WITH FWW AND GB. PT UNSTEADY WHILE STANDING UP TO USE THE URINAL. PRN ATIVAN GIVEN FOR ANXIETY; PT SLEPT WELL AFTER RECEIVING ATIVAN. BREATHING TREATMENTS GIVEN. CALL LIGHT WITHIN REACH, WCTM.
--- NOTE | 2023-08-04 11:32 | NUR ---
"Spiritual Care | Pt./Nurse Request Pt. is awake in bed and welcomes my visit. Pt. is pleasant, but verbalizes that he cannot find his crucifix. This resin mixer excused himself to retrieve a rosary. When I returned a blessing for the sick is given, with a benediction. Pt. verbalized gratitude for the spiritual care visit. The rosary was left with the Pt."
[2023-08-04 15:05] VITALS: BP 172/112
[2023-08-04 19:27] VITALS: BP 152/106
--- NOTE | 2023-08-04 19:28 | NUR ---
SHIFT SUMMARY PT A&OX4. PT COOPERATIVE OF CARE AT TIMES AND WILL OCCASIONALLY YELL AND SWEAR AT STAFF. LUNG SOUNDS ARE COURSE AND PT DID C/O OF FEELING VERY SOB THIS AFTERNOON. PT STATED HE FELT LIKE HE COULDN'T BREATH. PT WAS SATING AT AROUND 94%. PT PLACED ON 2L OF OXYGEN AND SATING AROUND 97%. CHEST X-RAY DONE TODAY AT BEDSIDE. PT IMPULSIVE AND ATTEMPTE TO GET OOB T/O DAY. NO C/O PAIN. PT WILL AT TIMES USE CALL LIGHT. BED ALARM ON. BED IN LOWEST POSITION AND CALL LIGHT IN REACH.
[2023-08-04 23:14] VITALS: BP 151/97
[2023-08-05 02:38] VITALS: BP 146/85
[2023-08-05 05:06] LABS: Hematocrit 23.1 % (37.0-53.0); Hemoglobin 7.7 g/dL (13.5-17.5); Mean Corpuscular HGB 29.1 pg (26.0-34.0); Mean Corpuscular HGB Conc 33.3 g/dL (31.5-36.5); Mean Corpuscular Volume 87 fL (80-100); NRBC ABSOLUTE 0.02 K/mm3 (0.00-0.02); NRBC Auto 0.2 /100 WBC (0.0-0.2); Platelet Count 325 K/mm3 (150-400); RDW Coefficient Variation 16.1 % (11.7-14.2); Red Blood Cell Count 2.65 M/mm3 (4.30-5.90); White Blood Cell Count 12.31 K/mm3 (4.00-11.30)
[2023-08-05 05:26] LABS: Bun/Creatinine Ratio 15.6 (12.0-20.0); Calcium, Blood 8.1 mg/dL (8.5-10.1); Creatinine, Blood 1.6 mg/dL (0.60-1.20); Potassium, Blood 5.2 mmol/L (3.5-5.5)
[2023-08-05 05:34] LABS: BASOPHILS PERCENT MAN 0 % (0-2); EOSINOPHILS PERCENT MAN 0 % (0-6); LYMPHOCYTES % ATYPICAL MANUAL 3 % (0-0); LYMPHOCYTES ABSOLUTE MAN 0.73 K/mm3 (0.84-5.20); LYMPHOCYTES PERCENT MAN 3 % (21-46); MONOCYTES ABSOLUTE MAN 0.73 K/mm3 (0.16-1.47); MONOCYTES PERCENT MAN 6 % (4-13); NEUTROPHILS ABSOLUTE MAN 10.83 K/mm3 (1.96-9.15); SEG NEUTROPHILS PERCENT MAN 88 % (41-73); TOTAL CELLS COUNTED 100
[2023-08-05 07:42] VITALS: BP 127/76
--- NOTE | 2023-08-05 07:42 | NUR ---
SHIFT SUMMERY . PT UP NEARLY ALL NIGHT HAVING TO VOID SM AMOUNTS. BLADDER SCANER BROUGHT TP PT ROOM TO CHECK PT. AT THIOS TIME PT WAS FINALY ASLEEP AND APPERED TO BE RESTING WELL. BED ALARM BRICK BURNER LIGHT IN REACH.
[2023-08-05 14:37] VITALS: BP 151/85
--- NOTE | 2023-08-05 17:44 | NUR ---
SHIFT SUMMARY PATIENT ON 2LITERS O2 VIA NC. LABORED BELLY BREATHING AND C/O SOB, RESPIRATORY THERAPY CONSULTED AND TREATMENTS ADMINISTERED WITH POSITIVE RESULTS. CALLING OUT FOR ASSISTANCE MOST OF SHIFT, NOT USING CALL LIGHT APPROPRIATELY. WILL CONITNUE TO MONITOR
--- NOTE | 2023-08-05 18:08 | NUR ---
DIET CHANGE DOWNGRADED PATIENT'S DIET TO PUREE, C/O FOODS BEING TOO HARD TO CHEW DESPITE BEING ON [facility] SOFT DIET. SWALLOW INTACT FROM NURSING STANDPOINT.
[2023-08-05 19:35] VITALS: BP 147/76
[2023-08-05 23:13] LABS: PCO2 Arterial 35.8 mmHg (35-45); PO2 Arterial 248 mmHg (80-100); pH Blood Arterial 7.37 (7.35-7.45)
--- NOTE | 2023-08-06 04:42 | NUR ---
SHIFT SUMMARY: ON O2 @ 2 L/MIN NC, SATS > 88%; BREATH SOUNDS COARSE, DIM, TIGHT WITH EXP WHEEZES, USING ACCESSORY MUSCLES, TACHYPNEIC WITH ACTIVITY. TRIED TO PUT PT ON BIPAP, BUT HE COULD NOT TOLERATE IT. A&O TO SELF ONLY, CAN BE IMPULSIVE. MEDICATED FOR ANXIETY X 1 WITH NO REAL EFFECT. CONT/INCONT OF B&B, NEEDS ASSISTANCE WITH URINAL. GOT PT UP TO CHAIR AT BEGINNING OF SHIFT, BUT HE WANTED TO GO BTB ALMOST IMMEDIATELY. RT PERFORMED ABG. MAY NEED PALLIIATIVE CARE TO DISCUSS GOALS OF CARE GOING FORWARD.
[2023-08-06 04:44] VITALS: BP 174/97
[2023-08-06 04:48] LABS: BASOPHILS ABSOLUTE AUTO 0.02 K/mm3 (0.00-0.23); BASOPHILS PERCENT AUTO 0 % (0-2); EOSINOPHILS PERCENT AUTO 0 % (0-6); Hemoglobin 8.1 g/dL (13.5-17.5); IMMATURE GRAN ABSOLUTE AUTO 0.36 K/mm3 (0.00-0.10); IMMATURE GRAN PERCENT AUTO 3 % (0-1); LYMPHOCYTES ABSOLUTE AUTO 0.39 K/mm3 (0.84-5.20); LYMPHOCYTES PERCENT AUTO 3 % (21-46); MONOCYTES ABSOLUTE AUTO 0.77 K/mm3 (0.16-1.47); MONOCYTES PERCENT AUTO 6 % (4-13); Mean Corpuscular HGB 29.2 pg (26.0-34.0); Mean Corpuscular HGB Conc 33.8 g/dL (31.5-36.5); Mean Corpuscular Volume 87 fL (80-100); Mean Platelet Volume 10.9 fL (9.1-12.4); NEUTROPHILS ABSOLUTE AUTO 12.23 K/mm3 (1.96-9.15); NEUTROPHILS PERCENT AUTO 89 % (41-73); NRBC ABSOLUTE 0.03 K/mm3 (0.00-0.02); NRBC Auto 0.2 /100 WBC (0.0-0.2); Platelet Count 335 K/mm3 (150-400); RDW Coefficient Variation 15.5 % (11.7-14.2); RDW Standard Deviation 49.1 fL (35.1-46.3); Red Blood Cell Count 2.77 M/mm3 (4.30-5.90); White Blood Cell Count 13.77 K/mm3 (4.00-11.30)
[2023-08-06 05:07] LABS: Bun/Creatinine Ratio 15.2 (12.0-20.0); Calcium, Blood 8.2 mg/dL (8.5-10.1); Creatinine, Blood 1.64 mg/dL (0.60-1.20); Potassium, Blood 5.1 mmol/L (3.5-5.5)
[2023-08-06 08:03] VITALS: BP 162/92
[2023-08-06 15:25] VITALS: BP 140/87
--- NOTE | 2023-08-06 17:21 | NUR ---
SHIFT SUMMARY PATIENT UNABLE TO TOLERATE SITTING IN CHAIR, SOB. CALLING OUT INTO HALLWAY INSTEAD OF USING CALL LIGHT. WILL CONTINUE TO MONITOR
[2023-08-06 18:02] LABS: Bun/Creatinine Ratio 16.1 (12.0-20.0); Calcium, Blood 8.3 mg/dL (8.5-10.1); Creatinine, Blood 1.49 mg/dL (0.60-1.20); Potassium, Blood 5.1 mmol/L (3.5-5.5)
[2023-08-06 20:45] VITALS: BP 139/78
[2023-08-07 04:01] VITALS: BP 102/62
--- NOTE | 2023-08-07 06:56 | NUR ---
Rn summary: Patient has been restless on and off tonight. Patient up to the BR x2 with 1 assist and once at beginniing of shift by himself. Bed alarm has been on the rest of the shift. Pt struggles to void. He goes about 150 at a time. Post void residual was 150 via bladder scan. Patient was very incontinent this am after sleeping well. Linen changed. Bed alarm remains on. O2 sats 98% on RA at rest, very audibly wheezy. IV NS bolus at 200cc an hour started at 0400 when order found. Not started on days. Day shift notified.
[2023-08-07 08:15] VITALS: BP 162/95
[2023-08-07 09:12] LABS: Bun/Creatinine Ratio 17.4 (12.0-20.0); Calcium, Blood 8.3 mg/dL (8.5-10.1); Creatinine, Blood 1.44 mg/dL (0.60-1.20); Potassium, Blood 5.1 mmol/L (3.5-5.5)
[2023-08-07 12:29] LABS: Bun/Creatinine Ratio 18.5 (12.0-20.0); Calcium, Blood 8.3 mg/dL (8.5-10.1); Creatinine, Blood 1.46 mg/dL (0.60-1.20); Potassium, Blood 4.9 mmol/L (3.5-5.5)
[2023-08-07 16:22] VITALS: BP 159/86
[2023-08-07 19:45] VITALS: BP 159/91
--- NOTE | 2023-08-07 22:16 | NUR ---
PT A&OX3 SITTING UP IN BED IN W/O O2 ON STATING 95% DECLINES CPAP. PT NS@200ML/HR STOPPED PER PROVIDERS ORDER PROVIDER TO REASSESS AFTER RT TX. PT LUNGS DIMISHED AT BASES W AUDIBLE WHEEZES WORSENING W EXCERSION. PT VOIDS TO URINAL W ASSIST OR AMBULATES TO BATHROOM W FWW DESTATS TO MID 8OS. IV IN RFA PATENT. R HAND BANDAGE DRESSING C/D/I. PT NA LEVEL 123 GIVEN CHICKEN BROTH WITH ADDED SALT PT TOLERATED WELL. THIN LIQUID PUREE SOLIDS. CALL ARMANDO WITHIN REACH BED LOWERED WILL CONITNUE TO MONITOR.
--- NOTE | 2023-08-08 04:13 | NUR ---
CLERICAL METHODS ANALYST SUMMARY BP ELEVATED, OTHERWISE VSS. AWAKE AT INTERVALS. A FEW ATTEMPTS TO GET OUT OF BED, BED ALARM ON. ENCOURAGED TO REMAIN IN BED. O2 PER NC AND CPAP, BUT CONTINUES TO REMOVE THEM. SATS IN THE 90'S. REECIVED PRN OF ATIVAN AT HS. SEEMED TO BECOME LESS ANXIOUS. IVF WSA 200 ML/HR, RESPS DIMINISHED. VOICED SOB. WAS NOTIFIED. WS TO ASSESS PT AT BEDSIDE, BUT INSTEAD, IVF WAS DC'D. HAS BEEN RESTING INTERMITTENTLY SINCE. CALL LIGHT IN REACH. ED ALARM ON. RAILS UP X 3 FOR SAFETY. WILL CONTINUE TO MONITOR
[2023-08-08 04:59] VITALS: BP 170/98
[2023-08-08 06:53] LABS: Hematocrit 24.5 % (37.0-53.0); Hemoglobin 8.6 g/dL (13.5-17.5); Mean Corpuscular HGB 29.7 pg (26.0-34.0); Mean Corpuscular HGB Conc 35.1 g/dL (31.5-36.5); Mean Corpuscular Volume 85 fL (80-100); Mean Platelet Volume 10.6 fL (9.1-12.4); Platelet Count 314 K/mm3 (150-400); RDW Coefficient Variation 15.5 % (11.7-14.2); RDW Standard Deviation 47.6 fL (35.1-46.3)
[2023-08-08 07:20] LABS: Bun/Creatinine Ratio 20.8 (12.0-20.0); Calcium, Blood 8.1 mg/dL (8.5-10.1); Creatinine, Blood 1.54 mg/dL (0.60-1.20); Potassium, Blood 5.5 mmol/L (3.5-5.5)
[2023-08-08 07:40] VITALS: BP 155/88
[2023-08-08 14:56] VITALS: BP 140/81
--- NOTE | 2023-08-08 15:41 | NUR ---
Case Conference Note Attempted to visit with Pt. Primary RN Magdalena reports Pt just laid down to sleep. Pt has agitation today and refused therapy. Pt not able to tolerate recommended BIPAP and mentation waxes and waynes. He appears more confused in the AM and starts to clear some after lunch. Palliative Care will F/U at a later time.
--- NOTE | 2023-08-08 17:40 | NUR ---
SUMMARY- NO ACUTE EVENTS OR CHANGES THIS SHIFT.
[2023-08-08 19:27] VITALS: BP 123/71
--- NOTE | 2023-08-08 21:52 | NUR ---
CHEST X RAY ORDERED AND TAKEN. AWAITING RESULTS. CALL LIGHT IN REACH
--- NOTE | 2023-08-08 21:53 | NUR ---
PT A&OX3 AMBULAES W DWW 1PASSIST, DECLINES O2 NC @2L POX 95%.CPAP @HS INTERMITTEN USE. PT HR 96. LUNGS DIMINSHED AT BASES,BS T/O. SLIGHT OXANA REDNESS. PT REPORTS RESTLESS LEGS. BED ALARM IN PLACE. CALL ARMANDO WITHIN REACH FORGETS LIMITATIONS. BED LOWERED. HOB ELEVATED. WILL CONTINUE TO MONITOR.
--- NOTE | 2023-08-08 22:28 | NUR ---
PULLED OFF CPAP, THEN CALLED OUT SAYING HE COULDNT BREATHE. ENCOURAGED TO KEEP CPAP ON AND TEKE DEEP BREATHS. HOB REMAINS ELEVATED. O2 SATS IN THE 90'S. CALL LIGHT IN REACH. RT AT BEDSIDE TO ADDRESS ISSUE
[2023-08-09 02:17] VITALS: BP 149/88
--- NOTE | 2023-08-09 03:57 | NUR ---
MARKETING SUPPORT COORDINATOR SUMMARY VSS. INTERMITTENT AGITATION WITH TRYING TO GET OUT OF BED, UNSTEADY AND NON COMPLIANT WITH SAFETY ISSUES. RECEIVED IV ATIVAN, CALMED DOWN. CPAP PLACED PER RT, BUT EVENTUALLY PT REMOVED IT AND BECAME AGITATED, SAYING HE COULDNT BREATHE. INSTRUCTED TO BREATHE IN NOSE AND OUT MOUTH. SATS PER CONT PULSE OX 90'S, HR UP AND DOWN PER BEHAVIOR. FINALLY CALMED AND HAS BEEN RESTING QUIETLY WITH FEW INTERRUPTIONS. CALL LIGHT IN REACH. WILL CONTINUE TO MONITOR. LUNG SOUNDS REMAIN WET. CHEST X RAY DONE EARLIER, AWAITING RESULTS.
[2023-08-09 07:42] VITALS: BP 139/64
[2023-08-09 08:43] LABS: Hematocrit 23.3 % (37.0-53.0); Hemoglobin 7.9 g/dL (13.5-17.5); Mean Corpuscular HGB 28.7 pg (26.0-34.0); Mean Corpuscular HGB Conc 33.9 g/dL (31.5-36.5); Mean Corpuscular Volume 85 fL (80-100); Mean Platelet Volume 11.2 fL (9.1-12.4); NRBC ABSOLUTE 0.02 K/mm3 (0.00-0.02); NRBC Auto 0.1 /100 WBC (0.0-0.2); Platelet Count 257 K/mm3 (150-400); RDW Coefficient Variation 15.3 % (11.7-14.2); Red Blood Cell Count 2.75 M/mm3 (4.30-5.90); White Blood Cell Count 18.67 K/mm3 (4.00-11.30)
[2023-08-09 09:09] LABS: Albumin, Blood 2.5 g/dL (3.4-5.0); Albumin/Globulin Ratio 1.1 (0.8-1.8); Bun/Creatinine Ratio 23.1 (12.0-20.0); Calcium, Blood 7.6 mg/dL (8.5-10.1); Creatinine, Blood 1.47 mg/dL (0.60-1.20); Globulin, Blood 2.3 g/dL (2.2-4.0); Potassium, Blood 5.3 mmol/L (3.5-5.5); Total Protein, Blood 4.8 g/dL (6.4-8.2)
[2023-08-09 09:10] LABS: Bilirubin, Total 0.5 mg/dL (0.1-1.0)
[2023-08-09 15:42] LABS: Calcium, Blood 7.8 mg/dL (8.5-10.1); Potassium, Blood 4.7 mmol/L (3.5-5.5)
[2023-08-09 15:45] LABS: Creatinine, Blood 1.48 mg/dL (0.60-1.20)
[2023-08-09 16:32] VITALS: BP 135/68
--- NOTE | 2023-08-09 18:21 | NUR ---
SHIFT SUMMARY PATIENT EASILY IRRITABLE AT START OF SHIFT. LESS IRRITABLE AND COOPERATIVE BY END OF SHIFT. PATIENT STATES THAT HE IS HOMELESS AND LIVES IN HIS VAN. PATIENT DOES NOT REMEMBER WHERE HE PARKED HIS VAN. PATIENT UP TO CHAIR WITH 1 PERSON ASSIST. PATIENT HAVING DIFFICULTY WITH URINATING BUT POST VOID BLADDER SCAN LESS THAN 75. SODIUM LEVEL CONTINUES TO BE LOW EVEN WITH IV INFUSION, SODIUM TABLET, EXTRA SODIUM WITH MEALS AND SALTY FOOD/DRINK.
[2023-08-09 19:58] VITALS: BP 135/75
--- NOTE | 2023-08-10 05:03 | NUR ---
SHIFT SUMMARY PT IS ALERT AND ORIENTED X3/4. PT UNSTEADY WHEN UP TO STAND AT BEDSIDE TO USE THE URINAL, TALKED WITH PT AND PT AGREED TO USE URINAL IN BED HE STATED HE IS VERY TIRED. PT EASILY IRRITABLE, GOT UPSET WHEN ASKED IF HE NEEDED HELP WITH THE URINAL. PT CPAP ON T/O MOST OF NIGHT-PT TOOK A BREAK DURING A PERIOD OF BEING AWAKE. PT DENIES CHEST PAIN/PRESSURE/TIGHTNESS. PT BED IS LOCKED IN THE LOWEST POSITION WITH CALL LIGHT IN REACH. NO S/S OF DISTRESS NOTED AT THIS TIME.
--- NOTE | 2023-08-10 06:45 | NUR ---
PT GOT UP AND WENT TO THE SHOWER TO URINATE. BECAME INCREASINGLY AGITATED, NOT FOLLOWING DIRECTIONS, IMPULSIVE. DID NOT WANT HELP FROM ANY STAFF. STATED THAT "I COULD JUST PUNCH YOU GUYS".
[2023-08-10 07:39] VITALS: BP 153/89
[2023-08-10 10:52] LABS: Bun/Creatinine Ratio 22.7 (12.0-20.0); Calcium, Blood 7.8 mg/dL (8.5-10.1); Creatinine, Blood 1.54 mg/dL (0.60-1.20); Potassium, Blood 5.4 mmol/L (3.5-5.5)
[2023-08-10 11:43] LABS: Hematocrit 24.7 % (37.0-53.0); Hemoglobin 8.4 g/dL (13.5-17.5); Mean Corpuscular HGB 29.4 pg (26.0-34.0); Mean Corpuscular Volume 86 fL (80-100); Mean Platelet Volume 11.2 fL (9.1-12.4); Platelet Count 268 K/mm3 (150-400); RDW Coefficient Variation 15.6 % (11.7-14.2); RDW Standard Deviation 48.4 fL (35.1-46.3); Red Blood Cell Count 2.86 M/mm3 (4.30-5.90); White Blood Cell Count 24.89 K/mm3 (4.00-11.30)
[2023-08-10 15:21] VITALS: BP 142/80
--- NOTE | 2023-08-10 15:21 | NUR ---
Pt sitting on toilet upon arrival with IV ripped out. Placed IV on standbye, Primary RN Jaime in to assist Pt back to bed. Pt appears SOB from ambulating from bathroom to bed. Occasional swearing from Pt. Will attempt to visit with Pt at a later time when SOB has resolved.
--- NOTE | 2023-08-10 19:26 | NUR ---
SHIFT SUMMERY: PT WAS ALERT AND ABLE TO MAKE NEEDS KNOWN. NEW ORDERS FOR IV NS 1000 ML TO BE GIVEN TO RAISE SALT LEVELS. IV REPLACED RIGHT WRIST AFTER IT WAS PULLED WHILE HE USED THE REST ROOM. HE HAD AN SI STATEMENT OF " I JUST WANT TO END IT" WHEN QUESTIONED ABOUT THE STATMENT HE STATED THAT HE MADE IT OUT OF FRUSTRAION ON NOT BEING IN CONTROL OF THINGS AT THE MOMENT. HE DID NOT HAVE A PLAN OR MEANS AND REGREATED MAKEING THE STATMENT. CHARGE NURSE MADE AWARE OF STATEMENT AND INFORMED THIS NURSE TO JUST MONITOR DUE TO HIS FRUSTRATION AND NO INTENT OR PLAN.
[2023-08-10 19:51] LABS: Source, Urine Straight Cath
[2023-08-10 19:57] LABS: Appearance, Urine Clear (Clear); Bilirubin, Urine Neg (Neg); Blood, Urine 1+ (Neg); Color, Urine Yellow (P-Yellow); Glucose Qualitative, Urine 4+ (Neg); Ketones, Urine Neg (Neg); Leukocyte Esterase, Urine Neg (Neg); Nitrite, Urine Neg (Neg); Protein, Urine 3+ (Neg); Specific Gravity, Urine 1.015 (1.003-1.022); Urobilinogen, Urine NORM (Normal)
[2023-08-10 20:07] LABS: Bacteria Few /hpf; Granular Casts 0-2 /lpf (0); Hyaline Casts 0-2 /lpf (0-2); Squamous Epithelial Cells Rare /hpf (Few); White Blood Cells, Urine 0-2 /hpf (0-5)
[2023-08-10 20:57] VITALS: BP 133/87
--- NOTE | 2023-08-11 06:34 | NUR ---
SHIFT SUMMARY PT ALERT AND ORIENTED TO PERSON/SELF,PLACE AND SITUATION WITH CONFUSION. PT DENIES CHEST PAIN/PRESSURE/TIGHTNESS. PT ASSESSED FOR PAIN-PT DENIES PAIN. PT HAS BEEN IRRITABLE T/O NIGHT. PT HAS NOT BEEN WEARING HIS CPAP CONSISTENTLY T/O NIGHT TAKING IT OFF AND ON. PT REQUESTING SODAS ALL NIGHT, REQUESTED SODA THIS AM; EXPLAINED TO PT THAT WE WOULD NOT BE ABLE TO GET HIM ONE AT THIS TIME PT BECAME AGITATED-WHEN THIS RN LEFT THE ROOM PT HIT URINALS OFF OF HIS TABLE. TALKED WITH PATIENT THAT IT IS OKAY TO BE FRUSTRATED AND THAT HE JUST NEEDED TO BE PATIENT HE HAD JUST HAD 2 SODAS-PT YELLED "I DONT WANT TO BE, I WANT TO ONE NOW!". BED IS LOCKED IN THE LOWEST POSITION WITH CALL LIGHT IN REACH.
[2023-08-11 07:57] VITALS: BP 133/70
[2023-08-11 08:56] LABS: BASOPHILS ABSOLUTE AUTO 0.03 K/mm3 (0.00-0.23); BASOPHILS PERCENT AUTO 0 % (0-2); EOSINOPHILS ABSOLUTE AUTO 0.05 K/mm3 (0.00-0.68); EOSINOPHILS PERCENT AUTO 0 % (0-6); Hematocrit 27.2 % (37.0-53.0); IMMATURE GRAN ABSOLUTE AUTO 0.52 K/mm3 (0.00-0.10); IMMATURE GRAN PERCENT AUTO 2 % (0-1); LYMPHOCYTES PERCENT AUTO 7 % (21-46); MONOCYTES PERCENT AUTO 7 % (4-13); Mean Corpuscular HGB 28.8 pg (26.0-34.0); Mean Corpuscular HGB Conc 33.1 g/dL (31.5-36.5); Mean Corpuscular Volume 87 fL (80-100); NEUTROPHILS ABSOLUTE AUTO 18.64 K/mm3 (1.96-9.15); NEUTROPHILS PERCENT AUTO 83 % (41-73); Platelet Count 258 K/mm3 (150-400); RDW Coefficient Variation 15.9 % (11.7-14.2); RDW Standard Deviation 49.9 fL (35.1-46.3); Red Blood Cell Count 3.13 M/mm3 (4.30-5.90); White Blood Cell Count 22.44 K/mm3 (4.00-11.30)
[2023-08-11 09:20] LABS: Albumin, Blood 2.9 g/dL (3.4-5.0); Albumin/Globulin Ratio 1.1 (0.8-1.8); Bilirubin, Total 0.4 mg/dL (0.1-1.0); Bun/Creatinine Ratio 20.8 (12.0-20.0); Calcium, Blood 7.9 mg/dL (8.5-10.1); Creatinine, Blood 1.68 mg/dL (0.60-1.20); Globulin, Blood 2.6 g/dL (2.2-4.0); Potassium, Blood 5.2 mmol/L (3.5-5.5); Total Protein, Blood 5.5 g/dL (6.4-8.2)
[2023-08-11 15:37] VITALS: BP 133/78
--- NOTE | 2023-08-11 19:12 | NUR ---
SHIFT SUMMARY: PT IS ADMITTED FOR ACUTE RESPIRATORY FAILURE. IS ALERT AND ABLE TO MAKE NEEDS KNOWN. THROUGHOUT SHIFT WAS CALLING FOR SODA AND STATING THAT HE NEEDED IT FOR HIS BLOOD SUGARS. CBG S TODAY WERE AROUND 150. NOTED INCREASED EDEMA BILAT UPPER AND THE START BI LAT LOWER FROM YESTERDAY. MD ORDERED MANY CHANGED TO MEDICATIONS AND SEVERAL TESTS. ALSO STARTED ON TELLY
[2023-08-11 19:43] VITALS: BP 122/78
[2023-08-12 04:09] VITALS: BP 137/95
[2023-08-12 05:25] LABS: Hematocrit 22.3 % (37.0-53.0); Hemoglobin 7.7 g/dL (13.5-17.5); Mean Corpuscular HGB 29.6 pg (26.0-34.0); Mean Corpuscular HGB Conc 34.5 g/dL (31.5-36.5); Mean Corpuscular Volume 86 fL (80-100); Mean Platelet Volume 11.5 fL (9.1-12.4); Platelet Count 203 K/mm3 (150-400); RDW Coefficient Variation 15.7 % (11.7-14.2); RDW Standard Deviation 49.1 fL (35.1-46.3); White Blood Cell Count 16.45 K/mm3 (4.00-11.30)
--- NOTE | 2023-08-12 06:06 | NUR ---
SHIFT SUMMARY 68 YR M ADMITTED ON 08/02/23 FOR ACUTE RESPIRATORY FAILURE. FULL CODE. NO ACUTE CHANGES THIS SHIFT. PT CONTINUOUSLY ASKS FOR DIET SODA AND IS URINATING FREQUENTLY. NO S/S OF URINARY RETENTION THIS SHIFT. HE HAD MULTIPLE MEASURED VOIDS AND ONE EPISODE OF INCONTINENCE W/ LARGE OUTPUT. HIS URINE IS A DARK TEA COLOR. HE IS MOSTLY FRIENDLY BUT AT ONE POINT HE SHOOK HIS FIST AT THE RUMPER OUT OF FRUSTRATION. HE IS COMPLAINING ABOUT THE TELE BOX AND THIS NURSE IS CONCERNED THAT HE MAY PULL IT OFF. CALL FROM [employer] @ APPROX 0623 INFORMING THAT PT IS NOW IN A-FLUTTER. WILL PASS INFO ON TO DAY SHIFT NURSE.
[2023-08-12 06:26] LABS: Albumin, Blood 2.4 g/dL (3.4-5.0); Albumin/Globulin Ratio 1.1 (0.8-1.8); Bilirubin, Direct 0.1 mg/dL (0.0-0.3); Bilirubin, Total 0.6 mg/dL (0.1-1.0); Bun/Creatinine Ratio 21.1 (12.0-20.0); Calcium, Blood 7.3 mg/dL (8.5-10.1); Creatinine, Blood 1.66 mg/dL (0.60-1.20); Globulin, Blood 2.1 g/dL (2.2-4.0); Potassium, Blood 5.2 mmol/L (3.5-5.5); Total Protein, Blood 4.5 g/dL (6.4-8.2)
[2023-08-12 07:12] VITALS: BP 121/79
--- NOTE | 2023-08-12 08:49 | NUR ---
CALL TO DR Suzanne FOLEY R/T CHANGE METOPROLOL TARTRATE TO SUCCINATE 50MG QD. IV DILTIAZEM 5MG NOW AND SHE WILL COME ROUND ON HIM IN 20 MINUTES.
[2023-08-12 09:24] VITALS: BP 95/66
--- NOTE | 2023-08-12 10:14 | NUR ---
CALL FROM DENISA IN TELEMETRY. HR CONTINUES TO SUSTAIN AFIB FLUT IN 150s. DR. Suzanne FOLEY NOTIFIED. VERBAL ORDER FOR METOPROLOL SUCC 5MG IV NOW. THEN ADMINISTER TOPROL SUCC 50MG PO ONCE SBP >100.
[2023-08-12 10:21] VITALS: BP 106/71
[2023-08-12 14:21] VITALS: BP 111/69
--- NOTE | 2023-08-12 18:45 | NUR ---
DAY SHIFT SUMMARY: ALERT AND ORIENTED TO SELF. KNOWS HIS DAUGHTER IS RAHUL. BELIEVES HE IS AT [facility], BUT REDIRECTABLE ONCE TOLD HE IS IN THE HOSPITAL. VOIDING AND STOOLING TODAY WITHOUT DIFFICULTY; COLORLESS URINE. C/O BACK PAIN RELIEVED WITH HEATING PAD. TAKES MEDS WHOLE WTH FLUIDS. TELE AFIB c RVR AND TACHYCARDIC THOUGH HYPOTENSIVE. SUSTAINED IN 140s-150s NOT RELIEVED WITH 5MG IV PUSH DILTIAZEM. EVENTUALLY CAME DOWN TO 110s WITH 5MG IV PUSH METOPROLOL AND HAS SUSTAINED IN 110s SINCE. HIS DAUGHTER DID CALL AND WAS CONCERNED BECAUSE NEITHER OF THEM KNOW WHERE HIS VAN IS PARKED. POLYPHAGIA DESPITE HAVING CONSUMED 100% OF ALL MEALS AND SEVERAL SNACKS IN BETWEEN. 2+ PITTING EDEMA BLEs; BUEs 2+ AND WEEPING. HGB 7.7 THIS MORNING; PROVIDER AWARE. REPORT TO ONCOMING HERMILO.
[2023-08-12 19:22] VITALS: BP 118/67
[2023-08-13] VITALS (7 sets, daily range): BP systolic 92–124; BP diastolic 65–77
--- NOTE | 2023-08-13 04:56 | NUR ---
SHIFT SUMMARY 68 YR M ADMITTED ON 08/02/23 FOR ARF. FULL CODE. NO ACUTE CHANGES THIS SHIFT. PT ATTEMPTED TO WEAR HIS CPAP THIS SHIFT BUT HE HAS A HARD TIME KEEPING IT ON AND IT IRRITATES HIM. HE ALSO STATES THAT IT DRIES HIS MOUTH OUT AND CONTINUALLY ASKES FOR DIET SODA. HE URINATES FREQUENTLY AND URINE IS VERY PALE. NO CALLS FROM CHRISTIAN SCIENCE READER THIS SHIFT.
[2023-08-13 05:32] LABS: BASOPHILS ABSOLUTE AUTO 0.01 K/mm3 (0.00-0.23); BASOPHILS PERCENT AUTO 0 % (0-2); EOSINOPHILS ABSOLUTE AUTO 0.07 K/mm3 (0.00-0.68); EOSINOPHILS PERCENT AUTO 1 % (0-6); Hematocrit 23.4 % (37.0-53.0); Hemoglobin 7.8 g/dL (13.5-17.5); IMMATURE GRAN ABSOLUTE AUTO 0.27 K/mm3 (0.00-0.10); IMMATURE GRAN PERCENT AUTO 2 % (0-1); LYMPHOCYTES PERCENT AUTO 7 % (21-46); MONOCYTES ABSOLUTE AUTO 1.43 K/mm3 (0.16-1.47); MONOCYTES PERCENT AUTO 9 % (4-13); Mean Corpuscular HGB 29.3 pg (26.0-34.0); Mean Corpuscular HGB Conc 33.3 g/dL (31.5-36.5); Mean Corpuscular Volume 88 fL (80-100); Mean Platelet Volume 11.7 fL (9.1-12.4); NEUTROPHILS PERCENT AUTO 81 % (41-73); Platelet Count 184 K/mm3 (150-400); RDW Coefficient Variation 15.8 % (11.7-14.2); RDW Standard Deviation 50.5 fL (35.1-46.3); Red Blood Cell Count 2.66 M/mm3 (4.30-5.90); White Blood Cell Count 15.48 K/mm3 (4.00-11.30)
[2023-08-13 05:51] LABS: International Normalized Ratio 0.94; Prothrombin Time Results 9.9 Sec (9.7-11.5)
[2023-08-13 06:08] LABS: Albumin, Blood 2.3 g/dL (3.4-5.0); Bilirubin, Total 0.4 mg/dL (0.1-1.0); Bun/Creatinine Ratio 17.2 (12.0-20.0); Calcium, Blood 7.3 mg/dL (8.5-10.1); Creatinine, Blood 1.74 mg/dL (0.60-1.20); Globulin, Blood 2.4 g/dL (2.2-4.0); Potassium, Blood 4.9 mmol/L (3.5-5.5); Total Protein, Blood 4.7 g/dL (6.4-8.2)
--- NOTE | 2023-08-13 18:38 | NUR ---
SUMMARY- PT A/O TO SELF. FREQ SETS OFF BED ALARM, FORGETS TO USE THE CALL LIGHT. PT AMBULATES TO BATHROOM OR BEDSIDE COMMODE TO VOID. HAD LG BM THIS PM. PT HAS A BIG APPETITE AND ASKS FOR SNACKS AND ADDITIONAL TRAY FREQ. HAS AN ADA DIET WITH SSI, SUGARS IN 200'S TODAY. TELE REMAINS A FIB IN 100'S. BP SBP 110-120'S TODAY. WILL REPORT TO EDWIGE AKHTAR.
[2023-08-14 03:53] VITALS: BP 136/76
[2023-08-14 05:07] LABS: HBSAG SCREEN Negative (Negative); HCV AB Non Reactive (Non Reactive); HEP B CORE AB, TOT Negative (Negative)
[2023-08-14 05:25] LABS: BASOPHILS ABSOLUTE AUTO 0.01 K/mm3 (0.00-0.23); BASOPHILS PERCENT AUTO 0 % (0-2); EOSINOPHILS ABSOLUTE AUTO 0.03 K/mm3 (0.00-0.68); EOSINOPHILS PERCENT AUTO 0 % (0-6); Hematocrit 21.4 % (37.0-53.0); Hemoglobin 7.2 g/dL (13.5-17.5); IMMATURE GRAN ABSOLUTE AUTO 0.19 K/mm3 (0.00-0.10); IMMATURE GRAN PERCENT AUTO 2 % (0-1); LYMPHOCYTES ABSOLUTE AUTO 0.86 K/mm3 (0.84-5.20); LYMPHOCYTES PERCENT AUTO 7 % (21-46); MONOCYTES PERCENT AUTO 10 % (4-13); Mean Corpuscular HGB 29.1 pg (26.0-34.0); Mean Corpuscular HGB Conc 33.6 g/dL (31.5-36.5); Mean Corpuscular Volume 87 fL (80-100); Mean Platelet Volume 11.2 fL (9.1-12.4); NEUTROPHILS ABSOLUTE AUTO 10.21 K/mm3 (1.96-9.15); NEUTROPHILS PERCENT AUTO 81 % (41-73); Platelet Count 163 K/mm3 (150-400); RDW Coefficient Variation 15.9 % (11.7-14.2); Red Blood Cell Count 2.47 M/mm3 (4.30-5.90)
[2023-08-14 05:56] LABS: Albumin, Blood 2.1 g/dL (3.4-5.0); Albumin/Globulin Ratio 0.8 (0.8-1.8); Bilirubin, Total 0.4 mg/dL (0.1-1.0); Bun/Creatinine Ratio 16.3 (12.0-20.0); Calcium, Blood 7.4 mg/dL (8.5-10.1); Creatinine, Blood 1.66 mg/dL (0.60-1.20); Globulin, Blood 2.5 g/dL (2.2-4.0); Potassium, Blood 4.7 mmol/L (3.5-5.5); Total Protein, Blood 4.6 g/dL (6.4-8.2)
--- NOTE | 2023-08-14 06:40 | NUR ---
SHIFT SUMMARY PT LAYING IN BED DURING BEDSIDE ROUNDS, PT DENIES PAIN/SOB, PT ON STEREO EQUIPMENT SALESPERSON AT 94% ROOM AIR- PT TOOK SCHEDULED MEDS WITHOUT PROBLEMS- PT REQUESTED SODA SEVERAL TIMES T/O NIGHT- REMINDED PT THAT HE IS HERE FOR ACUTE RESPIRATORY THERAPY- PT AGREED, GAVE SMALL AMOUNT OF FLUIDS EACH HE ASKS- IV ABX INFUSED WITHOUT PROBLEMS, BED LOW POSITION, BED ALARM IN PLACE
[2023-08-14 08:01] VITALS: BP 125/84
[2023-08-14 15:26] VITALS: BP 126/95
[2023-08-14] MEDS ORDERED: DOCUZEN 8.6-501 EACH PO (17:24)
[2023-08-14] MEDS ORDERED: METF500 PO (17:24)
[2023-08-14] MEDS ORDERED: IPRAT-ALBUT 0.5-3 ML INH (17:25)
[2023-08-14] MEDS ORDERED: METO25ER PO (17:25)
[2023-08-14] MEDS ORDERED: LACT PO (17:26)
[2023-08-14] MEDS ORDERED: Nicoderm Cq1 EAC1 TOP (17:26)
[2023-08-14] MEDS ORDERED: LEVAQUIN750 MG PO (17:26)
--- NOTE | 2023-08-14 17:34 | NUR ---
DISCHARGE PT DISCHARGE ORDERS RECEIVED AT 1700 WITH NO WARNING. DISCHARGE PLANNERS GONE FOR THE EVENING. CONCERNS ABOUT PT ABILITY TO CARE FOR HIMSELF RAISED. PLANNING TO DISCHARGE TOMORROW WHEN CARE MANAGERS ARE HERE TO ASSIST WITH SUCCESSFUL SET UP PRIOR TO DISCHARGE TO PREVENT RETURN AFTER DISCHARGE. PLAN TO DISCHARGE TOMORROW REVIEWED WITH CHARGE NURSE. NURSEING SCIENTIFIC INFORMATICS PROJECT LEADER MADE AWARE OF DELAYED DISCHARGE WELL. TALKED WITH PT ABOUT HIS REFUSEL TO WORK WITH PT/OT THEREFORE HE IS NOT A CANDIDATE FOR SNF. HE AGREED TO WORK WITH THERAPY NOW. CONTINUE POC.
[2023-08-14 19:16] VITALS: BP 146/96
[2023-08-15 02:36] VITALS: BP 114/63
[2023-08-15 05:32] LABS: Hematocrit 20.7 % (37.0-53.0); Hemoglobin 7.1 g/dL (13.5-17.5)
[2023-08-15 06:00] LABS: Albumin, Blood 2.1 g/dL (3.4-5.0); Anion Gap 6 mmol/L (6-16); Blood Urea Nitrogen 23 mg/dL (8-24); Bun/Creatinine Ratio 13.5 (12.0-20.0); CO2, Blood 23 mmol/L (21-32); Calcium, Blood 7.3 mg/dL (8.5-10.1); Chloride, Blood 96 mmol/L (98-108); Glomerular Filtration Rate 43 (60-); Glucose, Blood 160 mg/dL (70-99); Phosphorus, Blood 3.5 mg/dL (2.5-4.9); Potassium, Blood 4.5 mmol/L (3.5-5.5); Sodium, Blood 125 mmol/L (136-145)
--- NOTE | 2023-08-15 06:42 | NUR ---
SHIFT SUMMARY BEDSIDE REPORT FROM EDUAR AKHTAR, PT AWAKE AND SITTING UP IN BED, PT REQUESTED ICE CREAM- PT ATE WITHOUT PROBLEMS, PT REQUESTING SANDWICH, CHEESE, ICE CREAM - AND FREQUENTLY USING THE URINAL, OFFERED CONDOM CATH AND APPLIED FOR FREQUENT URINATION- PT TOLERATED WELL- PT WORE CPAP AND CODING DIRECTOR FOR 6 HOURS IN NIGHT- PT HAD SNACK BEFORE BED AND WHEN AWAKE THIS MORNING
[2023-08-15 07:24] VITALS: BP 144/89
--- NOTE | 2023-08-15 09:37 | NUR ---
DISCHARGE PLAN DISCUSSED WITH DR STEVENS DISCHARGE CONCERNS WELL PT TRENDING H/H VALUES. PT MOBILITY AND EXERCISE INTOLERANCE CURRENTLY. P/T EVAL RECEIVED. TALKED WITH EYAL ABOUT NEW P/T EVAL. TALKED WITH ABOUT THE IMPORTANCE OF PARTICAPTING MUCH POSSIBLE. NOT JUST REFUSING OUT RIGHT. TALKED WITH CARE MANAGEMENT THIS MORNING. AWAITING EVAL. CONTINUE POC.
--- NOTE | 2023-08-15 13:03 | NUR ---
Pt sitting on edge of bed eating his lunch upon arrival. Pt A&OX3. Pt reports living at a [facility] and has daughter whom he does not stay in regular contact with. Engaged in therapeutic discussion regarding code status wishes. Educated on life sustaining treatments including risks and implications to CPR/Intubation. Pt reports his wishes are DNR. Pt appears more interested in eating his lunch than having a conversation. Ended visit. Spoke with Primary RN Preeti and discussed case. Spoke with Dr Khan and discussed case. Placed DNR order in [facility] per V/O from Dr Khan. Palliative Care will remain available
[2023-08-15 15:28] VITALS: BP 133/79
--- NOTE | 2023-08-15 17:20 | NUR ---
[facility] PT HAS BEEN ACCEPTED TO THE [facility]. HE WILL RECEIVE PHYSICAL THERAPY WHILE THERE. [place] [phone] . TALKED WITH PT DAUGHTER WHO LIVES IN [facility]. SHE HAS BEEN TRYING TO LOCATE PT VAN. SHE HAS CALLED ALL THE [facility] IN THE COUNTY AND HAS NOT FOUND HIS VAN. SHE HAS CONTACTED [facility] AND REQUESTED HELP.
[2023-08-15 19:17] VITALS: BP 121/75
[2023-08-15 19:18] VITALS: BP 121/75
[2023-08-16] VITALS (8 sets, daily range): BP systolic 128–151; BP diastolic 68–88
[2023-08-16 05:29] LABS: Hematocrit 20.6 % (37.0-53.0); Hemoglobin 6.9 g/dL (13.5-17.5)
--- NOTE | 2023-08-16 05:56 | NUR ---
SHIFT SUMMARY BEDSIDE REPORT FROM EDUAR RN- PT SITTING UP TO SIDE OF BED- PT TOOK SCHEDULED HS MEDS WITHOUT PROBLEMS,193 REPORT FROM DIECAST MACHINE OPERATOR MONITOR THAT PT HAD 5 BEATS OF VTACH, PT DENIED CP LAYING IN BED AND APPEARS TO BE COMFORTABLE, APPLIED CONDOM CATH D/T FREQUENT URINATION- PT LEFT ON FOR LESS THAN AN HOUR- PT AGITTATED- GAVE ATIVAN 1MG PO AND WILL ATTEMPT TO REAPPLY, PT AGREED- CPAP APPLIED WITH RANCH COOK - PT 99% ON CPAP - REAPPLIED CONDOM CATH - PT WORE T/O NIGHT- BED LOW POSITION, CALL LIGHT WITHIN REACH, BED ALARM IN PLACE
[2023-08-16 07:37] LABS: Hematocrit 21.2 % (37.0-53.0); Hemoglobin 7.3 g/dL (13.5-17.5)
[2023-08-16 07:54] LABS: IMMATURE RETIC FRACTION 7.5 % (2.3-16.0); RETIC HGB EQUIVALENT 36.7 pg (28.20-36.60); RETICULOCYTE COUNT PERCENT 3.62 % (0.50-2.50)
[2023-08-16 08:06] LABS: Albumin, Blood 2.2 g/dL (3.4-5.0); Albumin/Globulin Ratio 0.7 (0.8-1.8); Bilirubin, Total 0.3 mg/dL (0.1-1.0); Bun/Creatinine Ratio 13.6 (12.0-20.0); Calcium, Blood 7.5 mg/dL (8.5-10.1); Creatinine, Blood 1.69 mg/dL (0.60-1.20); Potassium, Blood 4.4 mmol/L (3.5-5.5); Total Protein, Blood 5.2 g/dL (6.4-8.2)
--- NOTE | 2023-08-16 09:09 | NUR ---
ASSUMED CARE OF PT. TRANSFUSION BEGUN FOR PT, NO S/S OF DISTRESS NOTED AT THIS TIME. PT TALKING ON PHONE.
--- NOTE | 2023-08-16 13:38 | NUR ---
Spiritual Care Visit. Pt. is awake in his bed when he welcomes my visit. Pt. displays evidence of being unsettled, but does not verbalize what it is. The Pt. remembered that this audiovisual lead technician had given him a Rosary, but could not remember where he had placed it. This audiovisual lead technician located the rosary on a bedside table out of the Pts. line of sight. Pt. displayed evidence of being cautiously thankful. Prayed with the Pt. Pt. verbalized gratitude for the spiritual care visit.
[2023-08-16 16:28] LABS: Hematocrit 24.1 % (37.0-53.0); Hemoglobin 8.2 g/dL (13.5-17.5)
--- NOTE | 2023-08-16 17:22 | NUR ---
SHIFT SUMMARY PT A&O TO SELF, PLACE, AND PERSON. PT RECEIVED BLOOD TRANSFUSION TODAY FOR A HGB UNDER 7. PT RESPONDED WELL TO TREATMENT AND NO ADVERSE EFFECTS NOTED AT THIS TIME. VSS. UPDATED ON PT CONDITION. NO ACUTE EVENTS DURING MY SHIFT AT THIS TIME. PT LEFT IN A POSITION OF SAFETY WITH BED LOCKED AND IN LOWEST POSITION, BED ALARM ENABLED, BED RAILS UPX 2-3, ROOM CLEAR OF DEBRIS, AND CALL LIGHT WITHIN REACH.
--- NOTE | 2023-08-17 00:44 | NUR ---
0015: THIS AUTHOR CALLED HOSPITALIST, REGARDING PT'S HEART RATE JUMPING FROM THE 106 AFIB, TO THE 160's. PT DENIED CHEST PAIN/SOB, NO DIZZINESS. 0045: PT RESTING PEACEFULLY, EYES ARE CLOSED APPEARS TO BE ASLEEP. PT TOLERATING C-PAP. CALL LIGHT WITHIN REACH, WCTM.
[2023-08-17 04:20] VITALS: BP 163/100
--- NOTE | 2023-08-17 05:28 | NUR ---
END OF SHIFT SUMMARY PT A&O x3-4, VSS, AFEBRILE. PT PLEASANT AND COOPERATIVE WITH CARE PROVIDED. PT CONFUSED ABOUT CONDOM CATHETER, WASN'T SURE IF THE BAG WAS COLLECTING URINE AND WANTED TO STAND UP TO URINATE. PT EDUCATION PROVIDED. ONCE PT GOT COMFORTABLE IN BED, PT SLEPT WELL. PT SLEPT WITH CPAP ALL NIGHT, TOLERATED IT WELL. BELL VALET CALLED A FEW TIMES TO ALERT THIS AUTHOR THAT PT HAD A RATE AND RHYTHM OF A FIB AT 106. LATER ON BELL VALET DETECTED A FIB IN THE 150's. THE LAST READING THAT WAS RECORDED WAS A FIB IN THE 160's. PT DENIED CHEST PAIN/PRESSURE/SOB/DIZZINESS/SYNCOPE. ATTENDING HOPSITALIST WAS NOTIFIED--WILL CONTINUE TO MONITOR HEART RATE AND VS SINCE THIS IS OCCURRING INTERMITTENTLY. CALL LIGHT WITHIN REACH, WCTM.
[2023-08-17 07:01] VITALS: BP 143/83
[2023-08-17 08:19] LABS: BASOPHILS ABSOLUTE AUTO 0.01 K/mm3 (0.00-0.23); BASOPHILS PERCENT AUTO 0 % (0-2); EOSINOPHILS ABSOLUTE AUTO 0.06 K/mm3 (0.00-0.68); EOSINOPHILS PERCENT AUTO 1 % (0-6); Hematocrit 25.5 % (37.0-53.0); Hemoglobin 8.7 g/dL (13.5-17.5); IMMATURE GRAN ABSOLUTE AUTO 0.13 K/mm3 (0.00-0.10); IMMATURE GRAN PERCENT AUTO 1 % (0-1); LYMPHOCYTES ABSOLUTE AUTO 0.67 K/mm3 (0.84-5.20); LYMPHOCYTES PERCENT AUTO 7 % (21-46); MONOCYTES ABSOLUTE AUTO 0.87 K/mm3 (0.16-1.47); MONOCYTES PERCENT AUTO 9 % (4-13); Mean Corpuscular HGB 29.6 pg (26.0-34.0); Mean Corpuscular HGB Conc 34.1 g/dL (31.5-36.5); Mean Corpuscular Volume 87 fL (80-100); Mean Platelet Volume 11.2 fL (9.1-12.4); NEUTROPHILS ABSOLUTE AUTO 8.24 K/mm3 (1.96-9.15); NEUTROPHILS PERCENT AUTO 83 % (41-73); Platelet Count 176 K/mm3 (150-400); RDW Coefficient Variation 15.7 % (11.7-14.2); RDW Standard Deviation 49.2 fL (35.1-46.3); Red Blood Cell Count 2.94 M/mm3 (4.30-5.90); White Blood Cell Count 9.98 K/mm3 (4.00-11.30)
[2023-08-17 08:39] LABS: Albumin, Blood 2.3 g/dL (3.4-5.0); Albumin/Globulin Ratio 0.7 (0.8-1.8); Bilirubin, Total 0.5 mg/dL (0.1-1.0); Bun/Creatinine Ratio 10.6 (12.0-20.0); Calcium, Blood 7.8 mg/dL (8.5-10.1); Creatinine, Blood 1.6 mg/dL (0.60-1.20); Globulin, Blood 3.1 g/dL (2.2-4.0); Potassium, Blood 4.6 mmol/L (3.5-5.5); Total Protein, Blood 5.4 g/dL (6.4-8.2)
[2023-08-17 15:18] VITALS: BP 145/88
--- NOTE | 2023-08-17 17:28 | NUR ---
SHIFT SUMMARY PT A&O X4. PT DAUGHTER CALLED AND GAVE NUMBER FOR [facility] AGRICULTURE TEACHER AND REQUESTED ASSISTANCE WITH CALLING AND GAINING INFORMATION REGARDING WHEREABOUTS OF WHERE PT WAS PICKED UP IN ORDER TO FIND VEHICLE AND BELONGINGS. NOTE LEFT FOR CASE MANAGEMENT. WILL PASS INFORMATION TO NOC SHIFT. VSS. NO ACUTE EVENTS DURING MY SHIFT CURRENTLY. PT LEFT IN A POSITION OF SAFETY WITH NONSKID SOCKS IN PLACE, BED/CHAIR ALARM ENABLED, ROOM CLEAR OF DEBRIS, AND CALL LIGHT WITHIN REACH.
[2023-08-17 20:13] VITALS: BP 158/111
[2023-08-18 04:40] VITALS: BP 138/94
--- NOTE | 2023-08-18 07:38 | NUR ---
END OF SHIFT SUMMARY PT SLEPT WELL OVER NIGHT. PT TOLERATED CPAP WELL. PT DENIED PAIN/DISCOMFORT. PT A&O x3-4. VSS, AFEBRILE. PT AMBULATES WITH STEADY GAIT TO [facility] WITH ASSISTANCE FROM 1P. PRN ATIVAN GIVEN AT BEDTIME FOR ANXIETY, WHICH WAS EFFECTIVE. PT EXPERIENCING SOME SHORTNESS OF BREATH WITH EXERTION. NO C/O CHEST PAIN/TIGHTNESS/PRESSURE. PT ABLE TO MAKE NEEDS KNOWN, CALL LIGHT WITHIN REACH, WCTM.
[2023-08-18 07:50] VITALS: BP 155/98
[2023-08-18 09:40] LABS: Albumin, Blood 2.3 g/dL (3.4-5.0); Albumin/Globulin Ratio 0.7 (0.8-1.8); Bilirubin, Total 0.3 mg/dL (0.1-1.0); Bun/Creatinine Ratio 11.2 (12.0-20.0); Calcium, Blood 8.1 mg/dL (8.5-10.1); Creatinine, Blood 1.69 mg/dL (0.60-1.20); Globulin, Blood 3.2 g/dL (2.2-4.0); Potassium, Blood 4.5 mmol/L (3.5-5.5); Total Protein, Blood 5.5 g/dL (6.4-8.2)
[2023-08-18 09:52] LABS: Hematocrit 24.3 % (37.0-53.0); Hemoglobin 8.3 g/dL (13.5-17.5)
[2023-08-18 10:29] LABS: Stool Occult Bld Immuno 1 Negative (NEGATIVE)
--- NOTE | 2023-08-18 13:46 | NUR ---
PATIENT TO BE DISCHARGED TO [facility] TODAY AT 3 PM, REPORTED TO DR AND RESIDENTS PATIENTS BREATHING, EDEMA, AND WEAKNESS. THESE SYMPTOMS ARE IMPROVED FROM ADMIT. PATIENT AGREES TO GO TO THE SNF
[2023-08-18] MEDS ORDERED: ALBU90OI INH (13:47)
[2023-08-18] MEDS ORDERED: AMLO5 PO (13:48)
[2023-08-18] MEDS ORDERED: MULVITA PO (13:48)
[2023-08-18] MEDS ORDERED: Ativan1 MG PO (13:50)
[2023-08-18] MEDS ORDERED: Seroquel Xr50 MG PO (13:51)
--- NOTE | 2023-08-18 14:59 | NUR ---
MULTIPLE CALLS TO [facility] FOR REPORT, PHONE IS CONTINUALLY BUSY
[2023-08-18] MEDS ORDERED: LEVAQUIN750 MG PO (15:57)
--- NOTE | 2023-08-18 17:58 | NUR ---
174 DISCHRGED TO [facility], TRANSPORTATION W/C ANTONI, REPORT GIVEN TO [facility] VIA THE [place] RN USING HER OWN PHONE DUE TO PHONES DOWN AT [facility]
== END 2023-08-18 17:46 | DRG 871 ==
LOC: ER 07:40 → ERHOLD 07:41 → PCU 13:21 → MEDS 08-02 12:31 → PCU 08-02 12:31 → MEDS 08-02 19:50 → ENPENDDIS 08-18 11:03 → MEDS 08-18 17:46
PROVIDERS: Family Medicine; Internal Medicine; Student in an Organized Health Care Education/Training Program; ADMIT Hospitalist
PROC: 3E03329 Introduction of Other Anti-infective into Peripheral Vein, Percutaneous Approach (ICD-10-PCS; 2023-08-02)
PROC: 4A033R1 Measurement of Arterial Saturation, Peripheral, Percutaneous Approach (ICD-10-PCS; 2023-08-05)
PROC: 5A09357 Assistance with Respiratory Ventilation, Less than 24 Consecutive Hours, Continuous Positive Airway Pressure (ICD-10-PCS; principal; 2023-08-13)
PROC: 30233N1 Transfusion of Nonautologous Red Blood Cells into Peripheral Vein, Percutaneous Approach (ICD-10-PCS; 2023-08-17)
DX: A41.52 Sepsis due to Pseudomonas (principal); J15.1 Pneumonia due to Pseudomonas; J96.21 Acute and chronic respiratory failure with hypoxia; J15.69 Pneumonia due to other Gram-negative bacteria; J44.1 Chronic obstructive pulmonary disease with (acute) exacerbation; J44.0 Chronic obstructive pulmonary disease with (acute) lower respiratory infection; E87.20 Acidosis, unspecified; Z59.02 Unsheltered homelessness; E87.1 Hypo-osmolality and hyponatremia; Z68.1 Body mass index [BMI] 19.9 or less, adult; Z66 Do not resuscitate; Z51.5 Encounter for palliative care; E11.22 Type 2 diabetes mellitus with diabetic chronic kidney disease; D63.1 Anemia in chronic kidney disease; E83.42 Hypomagnesemia; I12.9 Hypertensive chronic kidney disease with stage 1 through stage 4 chronic kidney disease, or unspecified chronic kidney disease; E78.5 Hyperlipidemia, unspecified; F41.9 Anxiety disorder, unspecified; G47.33 Obstructive sleep apnea (adult) (pediatric); N18.30 Chronic kidney disease, stage 3 unspecified; W18.30XA Fall on same level, unspecified, initial encounter; R45.1 Restlessness and agitation; I48.0 Paroxysmal atrial fibrillation; N32.89 Other specified disorders of bladder; R79.89 Other specified abnormal findings of blood chemistry; F10.20 Alcohol dependence, uncomplicated; R39.15 Urgency of urination; Z91.148 Patient's other noncompliance with medication regimen for other reason; R62.7 Adult failure to thrive; Z20.822 Contact with and (suspected) exposure to COVID-19; I16.0 Hypertensive urgency; F17.210 Nicotine dependence, cigarettes, uncomplicated; M25.551 Pain in right hip; S61.411A Laceration without foreign body of right hand, initial encounter; Y93.01 Activity, walking, marching and hiking; Y92.230 Patient room in hospital as the place of occurrence of the external cause; K08.89 Other specified disorders of teeth and supporting structures; F12.90 Cannabis use, unspecified, uncomplicated; Z79.2 Long term (current) use of antibiotics; Z79.51 Long term (current) use of inhaled steroids; Z79.52 Long term (current) use of systemic steroids; Z95.5 Presence of coronary angioplasty implant and graft; Z90.89 Acquired absence of other organs; Z98.890 Other specified postprocedural states
CPT/HCPCS: 0202U; 36415; 36430; 36600; 71045; 80048; 80053; 80069; 81001; 82248; 82274; 82803; 82947; 83036; 83615; 83735; 83880; 83930; 83935; 84145; 84300; 85014; 85018; 85025; 85027; 85045; 85610; 86704; 86708; 86803; 86850; 86900; 86901; 86923; 87040; 87070; 87077; 87186; 87205; 87340; 87426; 87811; 93005; 93010; 93306; 94640; 94644; 94645; 94660; 94664; 94760; 94762; 96365; 96366; 96367; 96372; 96375; 96376; 97110; 97116; 97129; 97162; 97164; 97166; 97530; 97535; 99285-25; A9270; G0378; J0456; J0696; J1650; J2060; J2543; J2930; J3475; J7030; J7050; P9016